=== PATIENT | female | born 1980 | race Caucasian/White ===

== ENCOUNTER 2016-07-07 15:27 | Emergency (ER) | payer OTHER ==
[~2016-07-07] VITALS: Ht 180.3 cm; Wt 127.0 kg
[2016-07-07 15:28] VITALS: BP 146/84
[2016-07-07] MEDS ORDERED: SPIR25TA2 PO (15:43)
[2016-07-07] MEDS ORDERED: CORE12.5 PO ×2 (15:43→15:54)
[2016-07-07] MEDS ORDERED: LISI-538 PO (15:43)
== END 2016-07-07 16:13 | disposition home or self-care (01) ==
LOC: M ED 15:58
DX: Z76.0 Encounter for issue of repeat prescription (principal); I10 Essential (primary) hypertension; E66.9 Obesity, unspecified; Z79.899 Other long term (current) drug therapy

== ENCOUNTER 2016-10-04 01:18 | Emergency (ER) | payer OTHER ==
[~2016-10-04 01:18] MED LIST: CORE12.5 PO; LISI-538 PO; SPIR25TA2 PO
[2016-10-04] MEDS ORDERED: NS 1,000 ML IV ONE (01:45)
[2016-10-04] MEDS ORDERED: MORPHINE 4 MG/ML 1ML SYRINGE IV ONE (02:00)
[2016-10-04 02:17] LABS: ADD MORPHOLOGY? YES; BASO % 0.9 % (0.0-1.0); EOS # 0.1 K/mm3 (0.0-0.50); EOS % 2.2 % (0.0-3.0); LARGE UNSTAINED CELL # 0.1 K/mm3 (0.0-0.4); LARGE UNSTAINED CELL % 0.9 % (0.0-4.0); LYMPH # 1.5 K/mm3 (1.5-4.5); LYMPH % 27.6 % (24.0-44.0); MEAN CORPUSCULAR HEMOGLOBIN 37.4 pg (27.0-33.0); MEAN CORPUSCULAR HGB CONC 33.4 g/dl (32.0-36.5); MEAN CORPUSCULAR VOLUME 111.8 fl (80.0-96.0); MONO # 0.2 K/mm3 (0.0-0.8); MONO % 3.2 % (0.0-5.0); NEUTROPHILS # 3.4 K/mm3 (1.8-7.7); NEUTROPHILS % 65.1 % (36.0-66.0); PLATELET COUNT, AUTOMATED 106 k/mm3 (150-450); RED CELL DISTRIBUTION WIDTH 13.8 % (11.5-14.5); WHITE BLOOD COUNT 5.3 K/mm3 (4.0-10.0)
[2016-10-04 02:32] LABS: ALBUMIN 3.3 GM/DL (3.2-5.2); ALBUMIN/GLOBULIN RATIO 0.85 (1.00-1.93); ALKALINE PHOSPHATASE 122 U/L (45-117); ALT/SGPT 32 U/L (12-78); AMYLASE 19 U/L (25-115); ANION GAP 10 MEQ/L (8-16); AST/SGOT 145 U/L (15-37); BILIRUBIN,DIRECT 0.3 MG/DL (0.0-0.2); BILIRUBIN,TOTAL 0.7 MG/DL (0.2-1.0); BLOOD UREA NITROGEN 5 MG/DL (7-18); CALCIUM LEVEL 8.8 MG/DL (8.5-10.1); CARBON DIOXIDE LEVEL 27 MEQ/L (21-32); CHLORIDE LEVEL 106 MEQ/L (98-107); CREATININE FOR GFR 0.63 MG/DL (0.55-1.02); GLOMERULAR FILTRATION RATE > 60.0 (>60); GLUCOSE, FASTING 105 MG/DL (70-105); POTASSIUM SERUM 3.3 MEQ/L (3.5-5.1); SODIUM LEVEL 143 MEQ/L (136-145); TOTAL PROTEIN 7.2 GM/DL (6.4-8.2)
[2016-10-04] MEDS ORDERED: ISOVUE-370 76% 100ML VIAL (Q9967) As Ordered ONE (02:35)
--- NOTE | 2016-10-04 03:30 | REPUSA ---
CLINICAL HISTORY: Abdominal pain. TECHNIQUE: Multiple axial, sagittal and coronal CT images were obtained through the abdomen and pelvi s after administration of intravenous contrast material. COMMENTS: Mildly enlarged precious hepatis lymph nodes with the largest measuring 1.3 cm. Mild enlarged portacaval lymph node measuring 1.4 cm. The liver is moderately enlarged with irregular contour but without mass or defect. There is no intra or extrahepatic biliary ductal dilatation. The spleen is mildly enlarged. The gallbladder is distend ed. The pancreas is of normal contour and attenuation characteristics. There is no evidence of adrena l mass. Both kidneys demonstrate prompt and equal nephrograms. The kidneys are normal in size, shape and conf iguration. There is no evidence of renal or ureteral mass. No renal or ureteral calculi are identifie d. There is no hydroureter or hydronephrosis. No evidence for appendicitis. There is hepatic flexure colonic wall thickening. No evidence for smal l or large bowel obstruction. There is small amount of perihepatic fluid. There is no evidence of intrinsic or extrinsic bladder mass. There is small amount of free pelvic fl uid. Images of the lung bases show no evidence of pleural or parenchymal mass. There are no pleural effusi ons. The bony structures are free of lytic or blastic lesions. Multilevel degenerative changes are seen in volving the thoracolumbar spine. Scattered calcifications are seen involving the aorta and major bran ches compatible with atherosclerosis. IMPRESSION: Parenchymal liver disease. Hepatomegaly. Splenomegaly. Portal hypertension. Mildly enlarged precious hepatis and portal caval lymph nodes. Mesenteric congestion. Mild ascites. Thickened, underdistended bladder. Underdistention, spasm versus mild cystitis. Please correlate with urinalysis if clinically needed. Thickened hepatic flexure of the colon. Underdistention, spasm versus mild colitis. No perforation or abscess formation. Thank you for your kind referral of this patient.
[2016-10-04] MEDS ORDERED: NORCO, ANEXSIA 5/325MG TABLET (HYDROcodone/ACETAMINOPHEN) PO ONE (03:45)
[2016-10-04 04:12] VITALS: BP 155/80
== END 2016-10-04 04:27 | disposition left against medical advice (07) ==
LOC: EDBD 01:18 → M ED 01:18
DX: R16.2 Hepatomegaly with splenomegaly, not elsewhere classified (principal); K76.6 Portal hypertension; I10 Essential (primary) hypertension; Z79.899 Other long term (current) drug therapy
CPT/HCPCS: 74177; 80048; 80076; 81001; 82150; 83690; 85025; 87086; 96374; 99284; Q9967

== ENCOUNTER 2016-10-14 20:03 | Emergency (ER) | payer OTHER ==
[~2016-10-14] VITALS: Ht 182.9 cm; Wt 139.5 kg
[2016-10-14] MEDS ORDERED: ONDANSETRON 4MG/2ML VIAL (J2405) IV ONE (20:45)
[2016-10-14] MEDS ORDERED: NS 1,000 ML IV ONE (20:45)
[2016-10-14] MEDS ORDERED: MORPHINE 4 MG/ML 1ML SYRINGE IV PRN (20:45)
[2016-10-14 21:29] LABS: ALBUMIN 3.8 GM/DL (3.2-5.2); ALBUMIN/GLOBULIN RATIO 0.84 (1.00-1.93); ALKALINE PHOSPHATASE 126 U/L (45-117); ALT/SGPT 39 U/L (12-78); ANION GAP 13 MEQ/L (8-16); AST/SGOT 151 U/L (15-37); BILIRUBIN,DIRECT 0.3 MG/DL (0.0-0.2); BILIRUBIN,TOTAL 0.9 MG/DL (0.2-1.0); BLOOD UREA NITROGEN 3 MG/DL (7-18); CALCIUM LEVEL 8.8 MG/DL (8.5-10.1); CARBON DIOXIDE LEVEL 25 MEQ/L (21-32); CHLORIDE LEVEL 105 MEQ/L (98-107); CREATININE FOR GFR 0.61 MG/DL (0.55-1.02); GLOMERULAR FILTRATION RATE > 60.0 (>60); GLUCOSE, FASTING 105 MG/DL (70-105); POTASSIUM SERUM 3.8 MEQ/L (3.5-5.1); SODIUM LEVEL 143 MEQ/L (136-145); TOTAL PROTEIN 8.3 GM/DL (6.4-8.2)
[2016-10-14] MEDS ORDERED: ISOVUE-370 76% 100ML VIAL (Q9967) As Ordered ONE (21:38)
[2016-10-14 21:51] LABS: ADD MANUAL DIFFER YES; MEAN CORPUSCULAR HEMOGLOBIN 37.1 pg (27.0-33.0); MEAN CORPUSCULAR VOLUME 112.3 fl (80.0-96.0); PLATELET COUNT, AUTOMATED 161 k/mm3 (150-450); RED CELL DISTRIBUTION WIDTH 13.5 % (11.5-14.5); WHITE BLOOD COUNT 8.6 K/mm3 (4.0-10.0)
[2016-10-14 22:10] LABS: INR 1.05
--- NOTE | 2016-10-14 22:20 | REPUSA ---
CT of the abdomen and pelvis without contrast Clinical statement: Pain. Technique: Multiple axial CT images were obtained from the base of the lungs to the floor of the pelv is utilizing 5 mm axial slices without administration of contrast. Coronal and sagittal reconstructio ns were also obtained. Comparison: 10/04/2016. Findings: Chest: The visualized lung bases are clear. Abdomen: The kidneys are normal in size bilaterally. There is no evidence of hydronephrosis or nephro lithiasis. The enlargement of the liver and spleen are grossly stable. Evidence of portal venous hype rtension is again noted and is stable. The liver, spleen, pancreas, gallbladder and adrenal glands ar e otherwise unremarkable. The aorta demonstrates normal caliber and contour. Enlarged portahepatic an d portocaval lymph node is stable. There is a trace perihepatic ascites.. Pelvis: The bowel is unremarkable, with no obstructive or inflammatory changes. The urinary bladder i s within normal limits. There is no pelvic lymphadenopathy or ascites. The other pelvic structures ap pear unremarkable. Bones: There are no suspicious osseous abnormalities seen. Impression: 1. Hepatosplenomegaly. Portal venous hypertension. Trace perihepatic ascites. 2. Mild portahepatic/portocaval adenopathy is grossly stable. 3. No obstructive or inflammatory bowel changes. 4. The other CT findings are stable.
[2016-10-14 22:35] LABS: BANDS 8 % (< 11); EOSINOPHILS 1 % (0-5)
[2016-10-14] MEDS ORDERED: ZOFR4TAB3 PO (23:00)
[2016-10-14] MEDS ORDERED: OXYCO5TA GT (23:00)
[2016-10-14] MEDS ORDERED: ONDANSETRON 4 MG ORAL DISINTEGRATING TAB (S0181) PO ONE (23:15)
[2016-10-14] MEDS ORDERED: oxyCODONE 5MG TAB PO ONE (23:15)
[2016-10-14 23:34] VITALS: BP 127/75
== END 2016-10-14 23:42 | disposition home or self-care (01) ==
LOC: M ED 20:03
DX: R16.2 Hepatomegaly with splenomegaly, not elsewhere classified (principal); K76.6 Portal hypertension; R18.8 Other ascites; I10 Essential (primary) hypertension; I50.9 Heart failure, unspecified; F17.200 Nicotine dependence, unspecified, uncomplicated; Z79.899 Other long term (current) drug therapy
CPT/HCPCS: 74177; 80048; 80076; 81025; 83690; 85025; 85610; 85730; 96374; 96375; 99284; J2405; Q9967

== ENCOUNTER → 2017-03-12 | Outpatient (REF) | payer OTHER | LOC: M SFHCLERA 14:52 | DX: R16.0 Hepatomegaly, not elsewhere classified (principal); N93.8 Other specified abnormal uterine and vaginal bleeding; E66.01 Morbid (severe) obesity due to excess calories ==

== ENCOUNTER 2017-07-05 08:35 | Day surgery (SDC) | payer OTHER ==
[2017-07-05] MEDS ORDERED: LIDOCAINE 2% INJ 100 MG/5 ML SDV (FOR ANES.) As Ordered (09:24)
[2017-07-05] MEDS ORDERED: PROPOFOL 200 MG/20 ML VIAL As Ordered ×4 (09:24→10:44)
[2017-07-05] MEDS: NS 1,000 ML IV (09:30)
== END 2017-07-05 11:26 | disposition home or self-care (01) ==
LOC: M OPP 08:35
DX: R93.3 Abnormal findings on diagnostic imaging of other parts of digestive tract (principal); K92.1 Melena; R19.4 Change in bowel habit; D12.2 Benign neoplasm of ascending colon; D12.7 Benign neoplasm of rectosigmoid junction; K64.8 Other hemorrhoids; I50.9 Heart failure, unspecified; I11.0 Hypertensive heart disease with heart failure; R16.1 Splenomegaly, not elsewhere classified; R06.02 Shortness of breath; R06.83 Snoring; F17.210 Nicotine dependence, cigarettes, uncomplicated; Z79.899 Other long term (current) drug therapy; Z80.3 Family history of malignant neoplasm of breast; Z80.8 Family history of malignant neoplasm of other organs or systems; Z80.0 Family history of malignant neoplasm of digestive organs; Z80.1 Family history of malignant neoplasm of trachea, bronchus and lung
CPT/HCPCS: 45385

== ENCOUNTER → 2017-07-19 | Outpatient (CLI) | payer OTHER | LOC: M WUC 15:51 | DX: M51.36 Other intervertebral disc degeneration, lumbar region (principal) | CPT/HCPCS: 72100 ==

== ENCOUNTER → 2017-11-04 | Outpatient (REF) | payer OTHER | LOC: M SFHCLERA 16:49 | DX: I10 Essential (primary) hypertension (principal) ==

== ENCOUNTER 2018-01-23 22:48 | Emergency (ER) | payer OTHER ==
[2018-01-24] MEDS: MORPHINE 4 MG/ML 1ML VIAL/SYRINGE (J2270) IV ×2 (01:47→07:42)
[2018-01-24] MEDS: ONDANSETRON 4MG/2ML VIAL (J2405) IV ×2 (01:48→09:01)
[2018-01-24] MEDS: NS 1,000 ML IV ×2 (01:48→02:45)
[2018-01-24] MEDS: fentaNYL 100 MCG/2 ML INJECTION (J3010) IV (02:45)
== END 2018-01-24 10:09 | disposition home or self-care (01) ==
LOC: M ED 22:48
DX: S82.401A Unspecified fracture of shaft of right fibula, initial encounter for closed fracture (principal); S82.52XA Displaced fracture of medial malleolus of left tibia, initial encounter for closed fracture; I10 Essential (primary) hypertension; F17.210 Nicotine dependence, cigarettes, uncomplicated; W18.39XA Other fall on same level, initial encounter; X50.0XXA Overexertion from strenuous movement or load, initial encounter; Y92.9 Unspecified place or not applicable
CPT/HCPCS: J2270

== ENCOUNTER 2018-01-28 13:43 | Day surgery (SDC) | payer OTHER ==
[~2018-01-28 13:43] MED LIST changes: +AcetaZOLAMIDE 500 MG ER CAP As Ordered; -CORE12.5 PO; -LISI-538 PO; -SPIR25TA2 PO
[2018-01-28] MEDS: LR 1,000 ML IV ×3 (14:00→21:15)
[2018-01-28] MEDS ORDERED: MIDAZOLAM INJ 2 MG/2 ML VIAL (J2250) As Ordered ×2 (17:38→19:14)
[2018-01-28] MEDS ORDERED: PROPOFOL 200 MG/20 ML VIAL As Ordered ×8 (17:39→19:27)
[2018-01-28] MEDS ORDERED: PHENYLephrine HCL 500 MCG/5 ML (100MCG/ML) SYRINGE (J2370) As Ordered (18:28)
[2018-01-28] MEDS: ceFAZolin 1GM INJ (J0690 PER 500MG) As Ordered (18:39)
[2018-01-28] MEDS ORDERED: KETAMINE HCL 200 MG/20 ML VIAL As Ordered (19:13)
[2018-01-28] MEDS ORDERED: ONDANSETRON 4MG/2ML VIAL (J2405) As Ordered ×2 (19:27)
[2018-01-28] MEDS: NORCO, ANEXSIA 5/325MG TABLET (HYDROcodone/ACETAMINOPHEN) PO (21:10)
[2018-01-28] MEDS ORDERED: fentaNYL 100 MCG/2 ML INJECTION (J3010) IV (21:15)
[2018-01-28] MEDS ORDERED: PERCOCET 5MG/325MG TAB PO (21:15)
[2018-01-28] MEDS ORDERED: ONDANSETRON 4MG/2ML VIAL (J2405) IV (21:15)
[2018-01-28] MEDS: MORPHINE 4 MG/ML 1ML VIAL/SYRINGE (J2270) IV (22:35)
[2018-01-29] MEDS: MORPHINE 4 MG/ML 1ML VIAL/SYRINGE (J2270) IV ×2 (00:13→02:13)
[2018-01-29] MEDS: ONDANSETRON 4MG/2ML VIAL (J2405) IV ×2 (02:20→09:07)
[2018-01-29] MEDS: PERCOCET 5MG/325MG TAB PO ×3 (03:04→14:31)
[2018-01-29] MEDS: LR 1,000 ML IV ×2 (05:00→13:15)
== END 2018-01-29 15:05 | disposition home or self-care (01) ==
LOC: M SDC 13:43 → M MS5PR 21:40
DX: S82.51XA Displaced fracture of medial malleolus of right tibia, initial encounter for closed fracture (principal); S82.831A Other fracture of upper and lower end of right fibula, initial encounter for closed fracture; S93.431A Sprain of tibiofibular ligament of right ankle, initial encounter; I11.0 Hypertensive heart disease with heart failure; I50.9 Heart failure, unspecified; R94.5 Abnormal results of liver function studies; K59.00 Constipation, unspecified; K62.5 Hemorrhage of anus and rectum; R16.1 Splenomegaly, not elsewhere classified; R09.81 Nasal congestion; G47.9 Sleep disorder, unspecified; R06.83 Snoring; Z79.899 Other long term (current) drug therapy; Z86.010 Personal history of colon polyps; Z72.0 Tobacco use; X58.XXXA Exposure to other specified factors, initial encounter; Y93.89 Activity, other specified; Y92.89 Other specified places as the place of occurrence of the external cause; Y99.8 Other external cause status
CPT/HCPCS: 27814

== ENCOUNTER 2018-04-02 03:51 | Inpatient (IN) | payer OTHER ==
[~2018-04-02] VITALS: Ht 182.9 cm; Wt 131.2 kg
[~2018-04-02 03:51] MED LIST changes: +ASPI325T PO; -AcetaZOLAMIDE 500 MG ER CAP As Ordered; +CARV12.5 PO; +CORE12.5 PO; +LISI-538 PO; +OXYCO5TA GT; +PERC5TAB12 PO; +SPIR-10 PO; +ZOFR4TAB14 PO; +ZOFR4TAB16 PO
[2018-04-02 04:33] LABS: BASO % 0.8 % (0.0-1.0); EOS % 0.8 % (0.0-3.0); HEMATOCRIT 37.4 % (36.0-47.0); HEMOGLOBIN 12.9 g/dl (12.0-15.5); LYMPH # 1.4 10^3/uL (1.5-4.5); LYMPH % 27.8 % (24.0-44.0); MEAN CORPUSCULAR HEMOGLOBIN 37.5 pg (27.0-33.0); MEAN CORPUSCULAR HGB CONC 34.5 g/dl (32.0-36.5); MEAN CORPUSCULAR VOLUME 108.7 fl (80.0-96.0); MONO # 0.5 10^3/uL (0.0-0.8); MONO % 9.7 % (0.0-5.0); NEUTROPHILS # 2.9 10^3/uL (1.8-7.7); NEUTROPHILS % 60.5 % (36.0-66.0); RED BLOOD COUNT 3.44 10^6/uL (4.00-5.40); WHITE BLOOD COUNT 4.9 10^3/uL (4.0-10.0)
[2018-04-02 04:38] LABS: BLOOD UREA NITROGEN 5 MG/DL (7-18); CALCIUM LEVEL 7.8 MG/DL (8.5-10.1); CARBON DIOXIDE LEVEL 28 MEQ/L (21-32); CHLORIDE LEVEL 97 MEQ/L (98-107); CREATININE FOR GFR 0.63 MG/DL (0.55-1.30); GLOMERULAR FILTRATION RATE > 60.0 (>58); GLUCOSE, FASTING 115 MG/DL (70-100); POTASSIUM SERUM 3.5 MEQ/L (3.5-5.1); SODIUM LEVEL 137 MEQ/L (136-145)
[2018-04-02 04:41] LABS: HCG, SERUM QUALITATIVE NEGATIVE (NEGATIVE)
[2018-04-02] MEDS ORDERED: MORPHINE 4 MG/ML 1ML VIAL/SYRINGE (J2270) IV ONE ×2 (04:45→06:00)
[2018-04-02 04:52] LABS: PLATELET COUNT, AUTOMATED 61 10^3/uL (150-450)
[2018-04-02 05:17] LABS: ALBUMIN 3.3 GM/DL (3.2-5.2); ALT/SGPT 69 U/L (12-78); BILIRUBIN,DIRECT 4.1 MG/DL (0.0-0.2); BILIRUBIN,TOTAL 6.4 MG/DL (0.2-1.0); LIPASE 387 U/L (73-393); TOTAL PROTEIN 7.2 GM/DL (6.4-8.2)
[2018-04-02] MEDS: GASTROGRAFIN SOLUTION 30ML PO SCH ×2 (05:40→06:00)
[2018-04-02] MEDS: NS 1,000 ML IV SCH ×3 (05:59→19:10)
[2018-04-02] MEDS ORDERED: ISOVUE-370 76% 100ML VIAL (Q9967) As Ordered ONE (07:31)
[2018-04-02] MEDS: MORPHINE 4 MG/ML 1ML VIAL/SYRINGE (J2270) IV PRN ×4 (07:54→17:26)
--- NOTE | 2018-04-02 08:21 | REP ---
CT of the abdomen and pelvis with IV and oral contrast: Comparison is 2016. The visualized lung hernandez are unremarkable. No pleural effusions. The hepatic parenchyma is hypodense compatible with hepato steatosis. No hepatic masses are identified. The liver appears enlarged. There is a small volume of ascites at the lateral margin of the liver. There are mesenteric varicosities anteriorly of uncertain significance. This may represent portal hypertension, however the portal vein does not appear dilated. There is focal inflammation at the inferior tip of the liver interposed between the liver, right kidney, duodenal loop and colonic hepatic flexure. This is nonspecific and could represent diverticulitis, pyelonephritis or duodenitis. There is no focal fluid collection to suggest abscess. The gallbladder, pancreas and spleen are unremarkable except that the spleen appears enlarged. The adrenals are unremarkable. The kidneys are unremarkable. There are no areas of a decreased left, decreased right renal cortical enhancement to suggest right pyelonephritis. The abdominal aorta is unremarkable. There is no bowel distension or obstruction. There are a few small diverticula in the hepatic flexure of the colon. Pelvis: The uterus and adnexa are unremarkable. There is no ascites. There is no adenopathy. The bladder is nondistended and cannot be further evaluated. Impression: Induration at the tip of the liver as described: Diverticulitis versus duodenitis. Pyelonephritis is considered less likely as the right kidney has an unremarkable appearance. No associated fluid collection to suggest abscess. Small volume of ascites lateral to the liver. Hepato splenomegaly. Hepato steatosis. Mesenteric varicosities anteriorly of uncertain significance, possibly portal hypertension, however the portal vein is not distended. No ascites. There are a few hepatic flexure a small diverticula. There are a few scattered diverticula in the sigmoid colon without diverticulitis. Electronically Signed by Nic Jack MD 04/02/2018 08:13 A
[2018-04-02 09:21] LABS: HEPATITIS B SURFACE ANTIGEN NEGATIVE (NEGATIVE)
[2018-04-02 09:48] LABS: HEPATITIS B CORE ANTIBODY IGM NEGATIVE (NEGATIVE); HEPATITIS C VIRUS ABY INDEX 0.4 INDEX (<0.8)
[2018-04-02 09:51] LABS: HEPATITIS A ANTIBODY IGM NEGATIVE (NEGATIVE)
--- NOTE | 2018-04-02 10:01 | REP ---
RIGHT UPPER QUADRANT ULTRASOUND: Real-time sonographic evaluation of the right upper quadrant performed and correlated with today's CT scan of the abdomen and pelvis. The study is limited due to patient body habitus and inability to suspend respiration. No gross gallstones are seen in the gallbladder. There is probably some mild sludge. There is no definite gallbladder wall thickening or pericholecystic fluid. The visualized portion of the common bile duct measures 7-8 mm essentially at the upper limits of normal. There is diffuse fatty infiltration of the liver. The pancreas could not be visualized. Right kidney demonstrates no hydronephrosis with normal size 12.5 cm in length. IMPRESSION: Extremely limited exam. Probable mild sludge in the gallbladder without definite gallstones or gallbladder wall thickening. No evidence of pericholecystic fluid. Common bile duct upper limits of normal at 7-8 mm. Diffuse fatty infiltration of the liver. Electronically Signed by Nic Seay MD 04/02/2018 10:45 A
[2018-04-02 16:58] LABS: HEMATOCRIT 35.5 % (36.0-47.0); HEMOGLOBIN 12.3 g/dl (12.0-15.5)
[2018-04-02] MEDS ORDERED: PROHANCE 279.3MG/ML 5ML VIAL (A9576) As Ordered ONE (20:14)
[2018-04-02] MEDS ORDERED: PROHANCE 279.3MG/ML 15ML VIAL (A9576) As Ordered ONE (20:14)
[2018-04-02] MEDS ORDERED: KETOROLAC 30 MG/ML VIAL (J1885) IV ONE (22:15)
--- NOTE | 2018-04-02 22:19 | REPVR ---
EXAM: MR Abdomen Without and With Contrast. Liver. EXAM DATE/TIME: 04/02/2018 8:26 PM CLINICAL HISTORY: 38 years old, female; Abnormal findings; Abnormal lab test; Elevated liver enzymes; Additional info: Abd pain elevated bili - liver protocol TECHNIQUE: MR Abdomen with and without intravenous contrast. Exam focused on the liver. CONTRAST: 20 ml of PROHANCE administered intravenously. COMPARISON: GALLBLADDER US 04/02/2018 9:01 AM FINDINGS: Liver: There is irregular enhancement of the enlarged liver which could be the result of hepatocellular disease or irregular fatty infiltration. Malignant infiltrative process not absolutely excluded. Gallbladder and bile ducts: There is hydrops of the gallbladder. There is small amount of ascites along the liver edge and along the margin of the gallbladder and duodenal C-loop. There is enlargement of the common bile duct measure approximately 1 CM. Mild prominence of the intrahepatic ducts also noted. This could be secondary to debris or a small nonopaque stone distal end of the duct. A small mass or mild stricture could give this appearance as well. No definite focal mass can be identified at this location. If there are continued symptoms an ERCP might be considered. This would be especially important if the common bile duct continues to increase in size. The common bile duct has increased in size when compared to the CT examination 2017. Pancreas: Normal pancreatic duct. Normal appearing pancreas. Spleen: There is moderate hepatosplenomegaly. Adrenals: Normal adrenal glands. Intraperitoneal space: There is stranding density and increased vessels in the anterior mesentery that has increased since 2017. This may be secondary to portal hypertension. Early metastasis to this area not absolutely excluded. Other findings: Normal appearing kidneys. IMPRESSION: 1. Since 2017 there has been an increase in the amount of ascites along the liver edge and along the gallbladder fossa and right paracolic space. 2. Also since 2017 there has been interval development of severe fatty infiltration of the liver and prominent hepatomegaly. 3. Since 2017 there has been increase in size the common bile duct now measuring 1 CM. Considerations would include nonopaque debris, nonopaque stone, small stricture or small mass distal end of the duct. ERCP may be necessary for further evaluation. 4. Severe irregular enhancement through the enlarged liver could be the result of hepatocellular disease, severe irregular fatty infiltration or neoplastic infiltration and new since 2017. 5. Prominent vessels and stranding density anterior mesentery new since 2017 may be due to portal hypertension. Early changes of metastasis can give this appearance as well. Electronically signed by: Sukhdev Mora On 04/02/2018 22:19:36 PM
[2018-04-02] MEDS ORDERED: SENN18TA PO (22:49)
[2018-04-03] MEDS ORDERED: PILL CRUSHER/CUTTER 1 EACH XX PRN (04:00)
[2018-04-03] MEDS: D5W/0.45% SODIUM CHLORIDE 1,000 ML IV SCH ×2 (04:38→22:03)
[2018-04-03] MEDS: cefTRIAXone SOD 1 GM in D5W MINI-BAG PLUS 50 ML IV SCH (04:45)
[2018-04-03] MEDS ORDERED: MORPHINE 4 MG/ML 1ML VIAL/SYRINGE (J2270) IV ONE (05:30)
[2018-04-03] MEDS: metroNIDAZOLE 500 MG in APPROPRIATE DILUENT 1 EA IV SCH ×3 (05:46→22:02)
[2018-04-03 07:07] LABS: ACETAMINOPHEN LEVEL < 2.0 UG/ML (10.0-30.0); CHOLESTEROL LEVEL 157 MG/DL (<200); HDL CHOLESTEROL 10 MG/DL (>40); LDL CHOLESTEROL 118 MG/DL (<100); NON-HDL-C 147 MG/DL; TRIGLYCERIDES LEVEL 146 MG/DL (<150)
[2018-04-03 08:14] LABS: INR 1.75; PROTHROMBIN TIME 20.7 SECONDS (12.1-14.4)
[2018-04-03 08:43] LABS: BASO # 0.1 10^3/uL (0.0-0.2); EOS % 0.8 % (0.0-3.0); HEMATOCRIT 31.8 % (36.0-47.0); LYMPH # 1.4 10^3/uL (1.5-4.5); MEAN CORPUSCULAR HEMOGLOBIN 38.3 pg (27.0-33.0); MEAN CORPUSCULAR HGB CONC 34.6 g/dl (32.0-36.5); MEAN CORPUSCULAR VOLUME 110.8 fl (80.0-96.0); MONO # 0.6 10^3/uL (0.0-0.8); MONO % 11.9 % (0.0-5.0); NEUTROPHILS # 2.8 10^3/uL (1.8-7.7); NEUTROPHILS % 56.9 % (36.0-66.0); RED BLOOD COUNT 2.87 10^6/uL (4.00-5.40); WHITE BLOOD COUNT 4.9 10^3/uL (4.0-10.0)
--- NOTE | 2018-04-03 09:16 | HPE ---
DATE OF ADMISSION: 04/03/2018 CHIEF COMPLAINT: The patient presented with abdominal cramping and abnormal vaginal bleeding. HISTORY OF PRESENT ILLNESS (HPI): The patient is a 38-year-old female. She has a significant past medical history of hypertension. She follows with Dr. Morales in the past for abdominal pain. She had a colonoscopy. She had multiple polyps. She has a history of pancreatitis cancer in the family not in herself personally. She states she has hepatomegaly and was believed to be a mild elevation of her liver function tests (LFTs) possible fatty infiltration. She presented to the emergency room (ER) today for abnormal uterine bleeding. The patient states over the last year she has had dysfunctional uterine bleeding. Over the last 3 weeks, she has continued to have vaginal bleeding with multiple large clots, some abdominal cramping for the past 3 weeks, multiple pads per day. Incidentally, she was noted to be jaundiced with scleral icterus. An obstructive jaundiced pattern with a total (T) bilirubin of 6 and a direct bilirubin of 4.1, which were normal back in 2017. Mild elevation of AST worsened now compared to 2017. GI, Dr. Morales was consulted in the emergency room. The patient had a CT right upper quadrant ultrasound and magnetic resonance cholangiopancreatography (MRCP). Her hemoglobin has remained stable while she is in the emergency room. PAST MEDICAL HISTORY: See HPI. PAST SURGICAL HISTORY: She had two (C) sections and a recent ankle surgery. HOME MEDICATIONS: - Coreg - Senna ALLERGIES: NO KNOWN DRUG ALLERGIES. SOCIAL HISTORY: She denies tobacco, alcohol or illicit drug use. FAMILY HISTORY: Pancreatic cancer. REVIEW OF SYSTEMS: A 12-point review of systems was performed, all of which were negative except those listed in the HPI. VITALS ON ADMISSION: Temperature 98.4, pulse 96, respirations 18, saturating at 98% on room air, blood pressure 134/69. PHYSICAL EXAMINATION: General: She is well nourished, in no apparent distress. Head is normocephalic, atraumatic. Eyes: Extraocular movements are intact. Pupils equal round and reactive to light. Neck is supple. No jugular venous pulse (JVP). Lungs are clear to auscultation. No crackles, wheezes, rales or rhonchi. Cardiovascular: Regular rate and rhythm. Normal S1, S2. No murmurs, gallops or rubs. The abdomen is soft. There is suprapubic tenderness on deep palpation. No rebound. No guarding. Hepatomegaly evident. Extremities: No pitting edema or calf tenderness. Skin is intact. She has scleral icterus in the eye exam as well as mild jaundice in the skin exam. Neurological: Alert and oriented times three. No focal deficits appreciated on exam. LABS AND IMAGING: Done in the ER, white count of 4, hemoglobin/hematocrit (H/H) of 12 and 37, platelet count of 61. Chemistry shows BUN and creatinine of 5 over 0.6, T bilirubin 6.4 normal when compared to 2017, direct bilirubin of 4.1 normal when compared to 2017, AST of 447 elevated compared to 2017, ALT 69, alkaline phosphatase 150, lipase within normal limits. Urinalysis (UA) shows only blood. Hepatitis panel is negative. Imaging MRCP: Since 2017, there has been increase in the amount of ascites along the liver edge and along the gallbladder fossa and right paracolic space.there is inability to look in fatty infiltration of the liver and prominent hepatomegaly 2017 there has been increase in the size of the common bile duct now measuring 1 cm. Severe irregular enhancement to the enlarged liver could be the result of hepatocellular disease, severe fatty infiltration and neoplastic infiltration new since 2017. Prominent vessels and stranding density mesentery new since 2017 may be due to portal hypertension. Early changes of mets can give this appearance as well. Ultrasound of the gallbladder shows extremely limiting exam, probably mild sludge in the gallbladder without definitive gallstones or gallbladder wall thickening. No evidence of pericholecystic fluid. Common bile duct (CBD) 7-8 mm. Diffuse fatty infiltration of the liver. CT of the abdomen and pelvis: Induration of the tip of the liver is described. Diverticulitis verus duodenitis. Pyelonephritis is considered less likely as the right kidney has an unremarkable appearance. No associated fluid collection to suggest abscess. Small volume of ascites lateral to the liver. Mesenteric varicosities anteriorly of uncertain significance, possibly portal hypertension, however the portal vein is not distended. ASSESSMENT AND PLAN: Obstructive jaundice, hepatitis versus less likely infiltrative neoplastic process. Patient to have endoscopic retrograde cholangiopancreatography (ERCP) in the a.m., to be seen by cnc technician, Dr. Morales, and will keep nothing by mouth for now. Will place him on ceftriaxone and Flagyl as she will likely need an ERCP to assess for any obstruction. Antimitochondrial antibodies (AMA) to rule out primary biliary cirrhosis, anti-smooth muscle to rule out autoimmune hepatitis, Tylenol levels. Hepatitis panel is negative. The patient has not been exposed to any toxins. She only takes Coreg and Senna. She denies history of alcohol abuse. A CT abdomen and pelvic with contrast shows no signs of primary malignancy to suggest an infiltrative neoplastic process. The patient needs ERCP to assess for obstruction, strictures. Possibly may need a liver biopsy as well. GI to see in the a.m. For dysfunctional uterine bleeding, do serial hemoglobins, ultrasound of the pelvis. She will likely need a [employer] consult. She had outpatient appointment, which she has not yet made, to assess for any fibroids or other intrapelvic pathology. Hypertension: Continue Coreg. Supportive deep venous thrombosis (DVT) prophylaxis: Sequential compressive device (SCD). Gastrointestinal (GI) prophylaxis is not indicated. Diet: Nothing by mouth for now in lieu of possibly needing ERCP. MTDD
[2018-04-03] MEDS: CARVedilol 12.5 MG TAB PO SCH ×3 (09:40→22:04)
[2018-04-03 10:02] LABS: PLATELET COUNT, AUTOMATED 63 10^3/uL (150-450)
[2018-04-03 10:33] LABS: ALBUMIN 2.8 GM/DL (3.2-5.2); ALT/SGPT 55 U/L (12-78); BILIRUBIN,TOTAL 5.3 MG/DL (0.2-1.0); BLOOD UREA NITROGEN 7 MG/DL (7-18); CALCIUM LEVEL 7.7 MG/DL (8.5-10.1); CARBON DIOXIDE LEVEL 27 MEQ/L (21-32); CHLORIDE LEVEL 100 MEQ/L (98-107); CREATININE FOR GFR 0.49 MG/DL (0.55-1.30); GLOMERULAR FILTRATION RATE > 60.0 (>58); GLUCOSE, FASTING 84 MG/DL (70-100); MAGNESIUM LEVEL 1.5 MG/DL (1.8-2.4); POTASSIUM SERUM 3.2 MEQ/L (3.5-5.1); SODIUM LEVEL 136 MEQ/L (136-145); TOTAL PROTEIN 6.4 GM/DL (6.4-8.2)
[2018-04-03 10:45] LABS: LDH LACTATE DEHYDROGENASE 366 U/L (84-246)
--- NOTE | 2018-04-03 10:54 | REP ---
Pelvic ultrasound including transabdominal, endovaginal and Doppler ultrasound assessment for irregular bleeding for 3 weeks: The uterus is anteverted and slightly enlarged measuring 9.7 x 4.9 x 5.5 cm. The myometrium is mildly heterogeneous. Because of patient pain the uterine fundus is suboptimally visualized. The endometrium is heterogeneous and mildly thickened measuring up to 17.5 mm. Nabothian cysts are noted in the cervix. The right ovary measures 2.7 x 2.8 x 2.3 cm. There is no dominant right ovarian mass or cyst. The left ovary measures 3.6 x 2.2 x 3.2 cm. There is no dominant left ovarian mass or cyst. There is vascular flow in both ovaries. The Doppler resistive index of the parenchymal arteries of the right ovary is 0.37 and left ovary 0.41. There is a mild volume of free fluid in the pelvis. Impression: Mildly thickened heterogeneous endometrium. The uterine fundus is suboptimally visualized because of patient pain. Electronically Signed by Nic Jack MD 04/03/2018 10:45 A
[2018-04-03 11:12] LABS: HEMATOCRIT 34.7 % (36.0-47.0); HEMOGLOBIN 11.8 g/dl (12.0-15.5)
[2018-04-03 11:34] LABS: ALBUMIN 3.1 GM/DL (3.2-5.2); ALT/SGPT 60 U/L (12-78); BILIRUBIN,TOTAL 5.8 MG/DL (0.2-1.0); BLOOD UREA NITROGEN 6 MG/DL (7-18); CALCIUM LEVEL 7.5 MG/DL (8.5-10.1); CARBON DIOXIDE LEVEL 26 MEQ/L (21-32); CHLORIDE LEVEL 99 MEQ/L (98-107); CREATININE FOR GFR 0.63 MG/DL (0.55-1.30); GLOMERULAR FILTRATION RATE > 60.0 (>58); GLUCOSE, FASTING 113 MG/DL (70-100); POTASSIUM SERUM 3.2 MEQ/L (3.5-5.1); SODIUM LEVEL 137 MEQ/L (136-145); TOTAL PROTEIN 7.2 GM/DL (6.4-8.2)
[2018-04-03] MEDS: PERCOCET 5MG/325MG TAB PO PRN ×2 (11:55→22:04)
[2018-04-03 16:15] VITALS: BP 167/87
[2018-04-03] MEDS: MORPHINE 4 MG/ML 1ML VIAL/SYRINGE (J2270) IV PRN (16:29)
[2018-04-03] MEDS ORDERED: PERCOCET 5MG/325MG TAB PO PRN (17:45)
[2018-04-03] MEDS ORDERED: MAG SULF 1GM/100ML (MAG RUN) 1 GM in APPROPRIATE DILUENT 1 EA IV ONE (17:45)
[2018-04-03] MEDS ORDERED: POTASSIUM CHLORIDE 10 MEQ SR TABLET PO ONE (17:45)
--- NOTE | 2018-04-03 18:00 | IPN ---
DATE: 04/03/2018 Patient seen and examined. Reported suprapubic crampiness intermittently. Denies any chest pain, pressure or discomfort. Denies any fevers or chills. VITAL SIGNS: Temperature 97.6, pulse 84, respirations 18, blood pressure 113/53, pulse oximetry 95% on room air. LABORATORY DATA: WBC 4.9, hemoglobin and hematocrit 11.8/34.7, platelets 63. Chemistry: Sodium 137, potassium 3.2, chloride 99, bicarbonate 26, BUN 6, creatinine 0.6, bilirubin 5.8. PHYSICAL EXAMINATION: GENERAL: Patient alert, comfortable, no acute distress. HEENT: Normocephalic, atraumatic. PULMONARY: Bilateral clear. CARDIAC: Regular, S1, S2. ABDOMEN: Soft, suprapubic tenderness to deep palpation. No rebound, no guarding. Positive bowel sounds. EXTREMITIES: No clubbing, cyanosis, or edema. ASSESSMENT AND PLAN: This is a 38-year-old female patient with family history of pancreatic cancer, history of hypertension, presented with progressively worsening crampy abdominal pain and vaginal bleeding, also found to be jaundiced with hyperbilirubinemia. 1. Vaginal bleeding, unknown etiology. Consulted obstetrics/gynecology ([facility]). Pelvic ultrasound. INR, PT/PTT, fibrinogen. Monitor hemoglobin and hematocrit, transfuse as needed. Vitamin K has been given. Pain medication is prescribed. Further recommendation as per obstetrics/gynecology ([facility]). 2. Jaundice with hyperbilirubinemia status post CT abdomen, right upper quadrant ultrasound, as well as MRCP. No evidence of obstruction is found at this time. Further workup has been ordered including antimitochondrial antibodies, anti-smooth muscle antibodies to rule out autoimmune hepatitis. Gastroenterology consulted. Tylenol level and hepatitis panel negative. Continue to follow liver function. Monitor hemoglobin and hematocrit. Vitamin K has been prescribed. Antibiotics, on Cipro and Flagyl, as per gastroenterology (GI). 3. Thrombocytopenia, likely secondary to cirrhosis. Continue to monitor. Transfuse as needed. 4. 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 Vitamin K has been prescribed. Will continue to monitor. 5. Hypertension. Continue Coreg. 6. Deep venous thrombosis (DVT) prophylaxis. Given vaginal bleed, thromboembolism deterrents (TEDs) and sequentials only. DISPOSITION: Pending gastroenterology (GI) and obstetrics/gynecology ([facility]) input. Likely going for EGD tomorrow.
[2018-04-03 18:05] LABS: HEMATOCRIT 31.9 % (36.0-47.0); HEMOGLOBIN 11.1 g/dl (12.0-15.5)
[2018-04-03] MEDS: PHYTONADIONE 5 MG TAB PO SCH (18:09)
--- NOTE | 2018-04-03 18:13 | CR.PDOC ---
General Date of Consultation: Apr 03, 2018 Referring Provider: THUAN JHAVERI MD Attending Physician: GOMEZ REYES MD Consultation Primary physician/ hospitalist: Dr. Jhaveri Reason for consult: Abnormal liver panel. HPI: 38-year-old female patient with HTN, cardiomyopathy ( on Coreg, fol lowing with Dr. Fish ), Obesity BMI 41--> 39), prior know hepatosplenomegaly, DUB ( following with AS400 ANALYST in past), presented to the emergency room (ER) today for excessive vaginal bleeding for around 3 weeks, with multiple large clots, lower abdominal cramping. Patient was noted with clinical jaundice in ER and did work up including liver panel, CT abdomen and then MRI liver protocol. GI was consulted for further evaluation. Patient currently reports still having vaginal bleeding, predominantly lower abdominal pain, with some discomfort around the umbilical area. Patient on further questioning reports her son was sick with some viral flu like symptoms and she was also having nausea with decreased/loss of appetite at home for the last 2 weeks. Patient denies any fever, recent travel, or diarrhea or generalized itching. Patient deneis heavy alcohol use but previous h/o heavy alcohol use from 20- 23 years age, but denies any IVDA. Patients is active smoker - but cutting down gradually. Pertinent negative GI symptoms: Patient denies vomiting, diarrhea, early satiety or unintentional weight loss. No history of hematemesis, melena or hematochezia. Patient reports regular bowel movements. OFF note: patient had right ankle fracture in January 2018 - had surgery and had been on Ankle cast since. Review of Systems: GI: as stated above CVS: No chest pain, No palpitations, mild leg swelling. RS: is on nasal cannula for hypoxemia, but not complaining of shortness of breath, No Wheezing, no cough WAITER/WAITRESS FORMAL: No dizziness, No motor weakness, No sensory problems Hematology: No bruising, No gum bleeding, Musculoskeletal: No joint pain, ambulating well. Skin: No rash : No hematuria, No burning sensation of the urine ENT: No ear discharge/ pain, No dysphagia. Eyes: No photophobia. Home medications: reviewed. Antithrombotic agents - None. Medical h/o: As above. Surgical h/o: C-sections 2001, 2008. Social h/o: Alcohol- prior heavy alcohol use but now only socially, tobacco- act zafar use, IVDA/ drugs- Denies. . Family h/o of GI cancers - Mother had intrabaodminal cancer -- suspected pancreatic. Prior Endoscopies: Colonoscopy - 07/05/2017 -- done for rectal bleeding -- good prep, completed till TI, noted few polyps -- all removed. Pathology - atleast 3 tubular adenomas ( also size >1 cm). Recommended repeat in 3 years. Prior GI evaluation: Followed in GI clinic [facility], was recommended liver work up and further liver imaging. Missed follow up, labs not available.( patient reports doing them at Cardiology clinic). Exam: Vitals: reviewed General: Alert and oriented x 3, not in distress HEENT: No pallor, Has scleral icterus. Normal oropharynx, No cervical lymph node s. Chest: symmetric with bilateral clear air entry, CVS: S1, S2 heard, normal, no murmurs . Abdomen: Obese, non -distended, no surgical scars, soft, non-tender, palpable enlarged liver mass, normal bowel sounds heard. Rectal exam: Patient refused Extremities: Mild pedal edema, right leg and ankle in cast, pulses palpable. WAITER/WAITRESS FORMAL: no focal motor or sensory deficits. Moves all extremities Skin: no rash. Labs: reviewed. Active viral hepatitis work up - negative. Autoimmune work up sent ( pending res ults). Imaging tests: reviewed the results of MRI liver protocol and CT scan with radiologist and compared with prior imaging. Noted features of portal hypertension, Liver parenchymal changes suggestive of cirrhotic nodule. Less likely metastatic lesions. no biliary obstructing stones. As per the report there is concern for papillary lesion. Impression: -- Abnormal liver panel with hepatosplenomegaly with small ascites and elevated bilirubin, low platelets, low albumin and elevated INR -- Likely liver cirrhosis -- ( possible etiology IRIZARRY vs Prior alcohol use vs Congestive hepatopathy ( know h/o cardiomyopathy in past). Needs further evaluation to confirm portal hyp ertension. -- Elevated bilirubin and AST levels -- DDx-- could be from chronic progressive cirrhosis vs r/o Acute viral hepatitis vs infiltrative liver disease vs autoimmune hepatitis. -- Dilated CBD in MRI but no CBD stones and concern for Ampullary/papillary lesion -- needs further evaluation. -- Excessive vaginal bleeding with mild anemia. Recommendations: - Patient educated about the test results, possible differential diagnoses and All questions answered. - Monitor IV fluid status closely. Avoid Excessive IV fluids. - Will obtain autoimmune work up, Rare viral hepatitis work up, hemolytic work up and septic work up.. - Monitor Liver panel - Avoid hepatotoxic medications. - Management of Dysfunctional uterine bleeding as per primary team and AS400 ANALYST. - Will schedule for EGD tomorrow to rule out esophageal varices and also to assess the ampulla. Clear liquid diet for today and then NPO after midnight. - The procedure, indications, risks (bleeding, perforation, infection, hypotension, respiratory depression, allergy, need for endotracheal intubation, surgery, colostomy, cardiac arrest, even ), benefits, limitations (e.g., missing a lesion), and all other alternatives (including no intervention) were explained to the patient who understood and agreed for the procedure. - When BP is stable to start low dose diuretics ( prefer Lasix 20mg and Aldacton e 50 mg). - In view of prior ankle fracture and chronic right leg immobilization, please consider DVT prophylaxis after reviewing the risks and benefits (as per primary team.). Plan of care discussed with patient and primary team. Patient verbalized understanding and agreed with the plan. Laboratory Data Labs 24H Laboratory Tests 2 04/03/18 05:57: Immature Granulocyte % (Auto) 0.4, White Blood Count 4.9, Red Blood Count 2.87L, Hemoglobin 11.0L, Hematocrit 31.8L, Mean Corpuscular Volume 110.8H, Mean Corpuscular Hemoglobin 38.3H, Mean Corpuscular Hemoglobin Concent 34.6, Red Cell Distribution Width 14.6H, Platelet Count 63L, Neutrophils (%) (Auto) 56.9, Lymphocytes (%) (Auto) 29.0, Monocytes (%) (Auto) 11.9H, Eosinophils (%) (Auto) 0.8, Basophils (%) (Auto) 1.0, Neutrophils # (Auto) 2.8, Lymphocytes # (Auto) 1.4L, Monocytes # (Auto) 0.6, Eosinophils # (Auto) 0.0, Basophils # (Auto) 0.1, Nucleated Red Blood Cells % (auto) 0.0, Differential Slide Review Report, Immature Platelet Fraction 6.1, Peripheral Blood Smear Path Consult PERIPHERAL SMEAR, Anion Gap 9, Glomerular Filtration Rate > 60.0, Blood Urea Nitrogen 7, Creatinine 0.49L, Sodium Level 136, Potassium Level 3.2L, Chloride Level 100, Carbon Dioxide Level 27, Calcium Level 7.7L, Aspartate Amino Transf (AST/SGOT) 356H, Alanine Aminotransferase (ALT/SGPT) 55, Lactate Dehydrogenase 366H, Alkaline Phosphatase 106, Total Bilirubin 5.3H, Triglycerides Level 146, LDL Cholesterol 118H, Total Protein 6.4, Albumin 2.8L, Magnesium Level 1.5L, Albumin/Globulin Ratio 0.78L, Total Cholesterol 157, Non-HDL Cholesterol (LDL + VLDL) 147, Total HDL Cholesterol 10L, Cholesterol/HDL Ratio 15.700H, Acetaminophen Level < 2.0L 04/03/18 07:47: Prothrombin Time 20.7H, Prothromb Time International Ratio 1.75, Activated Partial Thromboplast Time 43.0H, Fibrinogen 184L 04/03/18 10:55: Anion Gap 12, Glomerular Filtration Rate > 60.0, Blood Urea Nitrogen 6L, Creatinine 0.63, Sodium Level 137, Potassium Level 3.2L, Chloride Level 99, Carbon Dioxide Level 26, Calcium Level 7.5L, Aspartate Amino Transf (AST/SGOT) 389H, Alanine Aminotransferase (ALT/SGPT) 60, Alkaline Phosphatase 126H, Total Bilirubin 5.8H, Total Protein 7.2, Albumin 3.1L, Albumin/Globulin Ratio 0.76L CBC/BMP Laboratory Tests 04/03/18 05:57 Red Blood Count 2.87 L, Mean Corpuscular Volume 110.8 H, Mean Corpuscular Hemoglobin 38.3 H, Mean Corpuscular Hemoglobin Concent 34.6, Red Cell Distribution Width 14.6 H, Neutrophils (%) (Auto) 56.9, Lymphocytes (%) (Auto) 29.0, Monocytes (%) (Auto) 11.9 H, Eosinophils (%) (Auto) 0.8, Basophils (%) (Auto) 1.0, Neutrophils # (Auto) 2.8, Lymphocytes # (Auto) 1.4 L, Monocytes # (Auto) 0.6, Eosinophils # (Auto) 0.0, Basophils # (Auto) 0.1, Calcium Level 7.7 L, Aspartate Amino Transf (AST/SGOT) 356 H, Alanine Aminotransferase (ALT/SGPT) 55, Lactate Dehydrogenase 366 H, Alkaline Phosphatase 106, Total Bilirubin 5.3 H, Triglycerides Level 146, LDL Cholesterol 118 H, Total Protein 6.4, Albumin 2.8 L 04/03/18 10:55 Calcium Level 7.5 L, Aspartate Amino Transf (AST/SGOT) 389 H, Alanine Amino transferase (ALT/SGPT) 60, Alkaline Phosphatase 126 H, Total Bilirubin 5.8 H, Total Protein 7.2, Albumin 3.1 L Allergies Coded Allergies: No Known Allergies (Verified , 01/27/18) Home Medications Scheduled Carvedilol (Carvedilol) 12.5 Mg Tab, 18.75 MG PO BID, (Reported) Scheduled PRN Senna (Senna-Lax) 8.6 Mg Tab, 1 TAB PO DAILY PRN for CONSTIPATION, (Reported) GOMEZ REYES MD Apr 03, 2018 18:13
[2018-04-03 22:00] VITALS: BP 123/63
[2018-04-04 00:08] LABS: ANTI-MITOCHONDRIAL ANTIBODY 54.8 Units (0.0-20.0); ANTI-SMOOTH MUSCLE ANTIBODY 11 Units (0-19); ANTINUCLEAR ANTIBODIES DIRECT Negative (Negative)
[2018-04-04 00:19] LABS: HEMATOCRIT 31.7 % (36.0-47.0); HEMOGLOBIN 10.9 g/dl (12.0-15.5)
[2018-04-04] MEDS: MORPHINE 4 MG/ML 1ML VIAL/SYRINGE (J2270) IV PRN ×4 (01:16→22:43)
[2018-04-04] MEDS: cefTRIAXone SOD 1 GM in D5W MINI-BAG PLUS 50 ML IV SCH (04:18)
[2018-04-04 05:42] LABS: HEMOGLOBIN 11.2 g/dl (12.0-15.5); MEAN CORPUSCULAR HEMOGLOBIN 38.8 pg (27.0-33.0); MEAN CORPUSCULAR VOLUME 110.7 fl (80.0-96.0); RED BLOOD COUNT 2.89 10^6/uL (4.00-5.40); WHITE BLOOD COUNT 4.8 10^3/uL (4.0-10.0)
[2018-04-04] MEDS: metroNIDAZOLE 500 MG in APPROPRIATE DILUENT 1 EA IV SCH (05:42)
[2018-04-04 05:43] LABS: PLATELET COUNT, AUTOMATED 74 10^3/uL (150-450)
[2018-04-04 05:53] LABS: INR 1.63; PROTHROMBIN TIME 19.6 SECONDS (12.1-14.4)
[2018-04-04 05:59] LABS: PERCENT SATURATION 53.2 % (13.2-45.0)
[2018-04-04 06:00] VITALS: BP 129/69
[2018-04-04 06:00] LABS: ALBUMIN 2.6 GM/DL (3.2-5.2); ALT/SGPT 51 U/L (12-78); BILIRUBIN,TOTAL 5.2 MG/DL (0.2-1.0); BLOOD UREA NITROGEN 5 MG/DL (7-18); CALCIUM LEVEL 7.2 MG/DL (8.5-10.1); CARBON DIOXIDE LEVEL 28 MEQ/L (21-32); CHLORIDE LEVEL 100 MEQ/L (98-107); CREATININE FOR GFR 0.44 MG/DL (0.55-1.30); GLOMERULAR FILTRATION RATE > 60.0 (>58); GLUCOSE, FASTING 112 MG/DL (70-100); MAGNESIUM LEVEL 1.6 MG/DL (1.8-2.4); POTASSIUM SERUM 3.1 MEQ/L (3.5-5.1); SODIUM LEVEL 137 MEQ/L (136-145); TOTAL PROTEIN 6.6 GM/DL (6.4-8.2)
[2018-04-04] MEDS: MAG SULF 1GM/100ML (MAG RUN) 1 GM in APPROPRIATE DILUENT 1 EA IV SCH ×2 (07:53→09:00)
[2018-04-04] MEDS: PHYTONADIONE 5 MG TAB PO SCH (07:53)
[2018-04-04] MEDS: CARVedilol 12.5 MG TAB PO SCH ×2 (07:54→20:23)
[2018-04-04] MEDS ORDERED: POTASSIUM CHLORIDE 10 MEQ SR TABLET PO ONE (08:00)
--- NOTE | 2018-04-04 08:15 | NUR ---
[facility] Pelvic US reviewed. No significant findings. Given that patient is hemodynamically stable with other comorbidities currently being managed, I recommend follow up with [facility]ED [facility] as outpatient. Thank you Dr. Weldon
[2018-04-04 10:53] LABS: FOLATE 2.8 NG/ML (>5.4)
[2018-04-04] MEDS ORDERED: PROPOFOL 200 MG/20 ML VIAL As Ordered ONE ×3 (14:26→15:01)
[2018-04-04] MEDS ORDERED: LIDOCAINE 2% INJ 100 MG/5 ML SDV (FOR ANES.) As Ordered ONE (14:26)
--- NOTE | 2018-04-04 15:28 | ROOR ---
Patient Name: Shira Colon Procedure Date: 04/04/2018 2:39 PM Date of : 1980 Age: 38 Room: [facility] Gender: Female Note Status: Finalized Procedure: Upper GI endoscopy Indications: Cirrhosis rule out esophageal varices, Portal hypertension rule out esophageal varices Providers: Omar Morales MD Referring MD: 2. Inpatient 2. Inpatient, Nic MILAN MD Requesting Provider: Medicines: Monitored Anesthesia Care Complications: No immediate complications. Procedure: Pre-Anesthesia Assessment: - Prior to the procedure, a History and Physical was performed, and patient medications and allergies were reviewed. The patient is competent. The risks and benefits of the procedure and the sedation options and risks were discussed with the patient. All questions were answered and informed consent was obtained. Patient identification and proposed procedure were verified by the physician, the nurse and the anesthesiologist in the procedure room. Mental Status Examination: alert and oriented. Airway Examination: normal oropharyngeal airway and neck mobility. Respiratory Examination: clear to auscultation. CV Examination: normal. Prophylactic Antibiotics: The patient does not require prophylactic antibiotics. Prior Anticoagulants: The patient has taken no previous anticoagulant or antiplatelet agents. ASA Grade Assessment: III - A patient with severe systemic disease. After reviewing the risks and benefits, the patient was deemed in satisfactory condition to undergo the procedure. The anesthesia plan was to use monitored anesthesia care (MAC). Immediately prior to administration of medications, the patient was re-assessed for adequacy to receive sedatives. The heart rate, respiratory rate, oxygen saturations, blood pressure, adequacy of pulmonary ventilation, and response to care were monitored throughout the procedure. The physical status of the patient was re-assessed after the procedure. The Endoscope was introduced through the mouth, and advanced to the second part of duodenum. The upper GI endoscopy was accomplished without difficulty. The patient tolerated the procedure well. Findings: One column of non-bleeding grade II, small (< 5 mm) varices were found in the lower third of the esophagus,. No stigmata of recent bleeding were evident and no red stacie signs were present. Moderate, diffuse portal hypertensive gastropathy was found in the gastric fundus, in the gastric body and in the gastric antrum. Patchy moderate inflammation characterized by erosions was found in the gastric antrum. Biopsies were taken with a cold forceps for Helicobacter pylori testing. Verification of patient identification for the specimen was done by the physician and nurse using the patient's name, date and medical record number. Estimated blood loss was minimal. Diffuse moderate inflammation characterized by congestion (edema), erythema and granularity was found in the duodenal bulb and in the first portion of the duodenum. Biopsies were taken with a cold forceps for histology. There is no endoscopic evidence of mucosal abnormalities or mass in the second portion of the duodenum, in the major papilla, in the area of the minor papilla and in the third portion of the duodenum. Two biopsies were obtained in the second portion of the duodenum with cold forceps for histology. Impression: - Non-bleeding grade II and small (< 5 mm) esophageal varices. - Portal hypertensive gastropathy. - Gastritis. Biopsied. - Duodenitis. Biopsied. - There is no endoscopic evidence of mucosal abnormalities or mass in the second portion of the duodenum, in the major papilla, and in the area of the minor papilla. Two biopsies were obtained in the second portion of the duodenum. Recommendation: - Patient has a contact number available for emergencies. The signs and symptoms of potential delayed complications were discussed with the patient. Return to normal activities tomorrow. Written discharge instructions were provided to the patient. - Low sodium diet. - Continue present medications. - Await pathology results. - No aspirin, ibuprofen, naproxen, or other non-steroidal anti-inflammatory drugs. - Use Zantac (ranitidine) 150 mg PO Twice daily - to be taken wing coverer on empty stomach - 1/2 hour before breakfast and at bedtime. for 8 weeks. - Depending on clinical course will start on Non-selective beta dia for Variceal bleeding prophylaxis as out-patient. - Repeat upper endoscopy in 1 year for surveillance. - Return to GI clinic 1 - 2 weeks. Please call GI clinic @ [phone] for apppointment date and time. - Return to primary care physician. Omar Morales MD Omar Morales MD 04/04/2018 3:28:05 PM This report has been signed electronically. Number of Addenda: 0 Note Initiated On: 04/04/2018 2:39 PM Estimated Blood Loss: Estimated blood loss was minimal.
[2018-04-04 15:45] VITALS: BP 123/59
[2018-04-04 16:15] VITALS: BP 141/75
[2018-04-04] MEDS: ONDANSETRON 4MG/2ML VIAL (J2405) IV PRN (16:33)
[2018-04-04] MEDS: SPIRONOLACTONE 50 MG TAB PO SCH (18:13)
[2018-04-04 18:15] VITALS: BP 137/73
--- NOTE | 2018-04-04 19:14 | IPNPDOC ---
Text Note Date of Service The patient was seen on 04/04/18. NOTE Patient seen and examined. Reported suprapubic crampiness intermittently. Denies any chest pain, pressure or discomfort. Denies any fevers or chills. vaginal bleedin stopped PHYSICAL EXAMINATION: GENERAL: Patient alert, comfortable, no acute distress. HEENT: Normocephalic, atraumatic. PULMONARY: Bilateral clear. CARDIAC: Regular, S1, S2. ABDOMEN: Soft, suprapubic tenderness to deep palpation. No rebound, no guarding. Positive bowel sounds. EXTREMITIES: No clubbing, cyanosis, or edema. ASSESSMENT AND PLAN: This is a 38-year-old female patient with family history of pancreatic cancer, history of hypertension, presented with progressively worsening crampy abdominal pain and vaginal bleeding, also found to be jaundiced with hyperbilirubinemia. 1. Vaginal bleeding, unknown etiology. Consulted obstetrics/gynecology (ASSOCIATE TECHNICIAN). Pelvic ultrasound. INR, PT/PTT, fibrinogen. Monitor hemoglobin and hematocrit, transfuse as needed. Vitamin K has been given. Pain medication is prescribed. Further recommendation as per obstetrics/gynecology (ASSOCIATE TECHNICIAN). 2. Jaundice with hyperbilirubinemia status post CT abdomen, right upper quadrant ultrasound, as well as MRCP. No evidence of obstruction is found at this time. Further workup has been ordered including antimitochondrial antibodies positive, anti-smooth muscle antibodies to rule out autoimmune hepatitis. Gastroenterology consulted. Tylenol level and hepatitis panel negative. Continue to follow li annemarie function. Monitor hemoglobin and hematocrit. Vitamin K has been prescribed. likely 2/2 autoimmune hepatitis/ primary billiary cholangitis and IRIZARRY 3. Thrombocytopenia, likely secondary to cirrhosis. Continue to monitor. Transfuse as needed. 4. 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 Vitamin K has been prescribed. Will continue to monitor. 5. 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 s/p EGD by GI, no evidence of cancer. banding of esophageal varices beta dia, lasix, spirolactone. Pepcid, gi f/u outpatient 6 Hypertension. Continue Coreg. 7 Deep venous thrombosis (DVT) prophylaxis. Given vaginal bleed, thromboembolism deterrents (TEDs) and sequentials only. DISPOSITION: dc in 24 hr VS,[place], I+O VS, Fishbone, I+O Laboratory Tests 04/03/18 23:44 04/04/18 05:25 Red Blood Count 2.89 L, Mean Corpuscular Volume 110.7 H, Mean Corpuscular Hemoglobin 38.8 H, Mean Corpuscular Hemoglobin Concent 35.0, Red Cell Distribution Width 15.0 H, Calcium Level 7.2 L, Aspartate Amino Transf (AST/SGOT) 310 H, Alanine Aminotransferase (ALT/SGPT) 51, Alkaline Phosphatase 115, Total Bilirubin 5.2 H, Total Protein 6.6, Albumin 2.6 L 04/04/18 11:48 Vital Signs Date Time Temp Pulse Resp B/P (MAP) Pulse Ox O2 Delivery O2 Flow Rate FiO2 04/04/18 18:14 20 04/04/18 16:15 97.9 83 141/75 (97) 96 04/04/18 15:18 Room Air 04/03/18 08:16 2.0 I&O- Last 24 Hours up to 6 AM 04/04/18 06:00 Intake Total 2060 ml Output Total 675 ml Balance 1385 ml THUAN JHAVERI MD Apr 04, 2018 19:14
[2018-04-04 19:15] VITALS: BP 117/57
[2018-04-04] MEDS: FAMOTIDINE 20 MG TAB PO SCH (20:18)
[2018-04-04] MEDS: PERCOCET 5MG/325MG TAB PO PRN (20:22)
[2018-04-04 22:00] VITALS: BP 110/58
[2018-04-05 02:00] VITALS: BP 102/57
[2018-04-05] MEDS: ONDANSETRON 4MG/2ML VIAL (J2405) IV PRN ×2 (02:11→11:01)
[2018-04-05] MEDS: PERCOCET 5MG/325MG TAB PO PRN ×4 (02:11→22:47)
[2018-04-05] MEDS: MORPHINE 4 MG/ML 1ML VIAL/SYRINGE (J2270) IV PRN ×2 (05:59→20:05)
[2018-04-05 06:00] VITALS: BP 121/57
[2018-04-05 06:29] LABS: HEMATOCRIT 32.2 % (36.0-47.0); MEAN CORPUSCULAR HEMOGLOBIN 37.8 pg (27.0-33.0); MEAN CORPUSCULAR HGB CONC 34.2 g/dl (32.0-36.5); MEAN CORPUSCULAR VOLUME 110.7 fl (80.0-96.0); RED BLOOD COUNT 2.91 10^6/uL (4.00-5.40); WHITE BLOOD COUNT 4.8 10^3/uL (4.0-10.0)
[2018-04-05 06:30] LABS: PLATELET COUNT, AUTOMATED 76 10^3/uL (150-450)
[2018-04-05 06:36] LABS: INR 1.52; PROTHROMBIN TIME 18.5 SECONDS (12.1-14.4)
[2018-04-05 06:52] LABS: ALBUMIN 2.7 GM/DL (3.2-5.2); ALT/SGPT 48 U/L (12-78); BILIRUBIN,TOTAL 4.1 MG/DL (0.2-1.0); BLOOD UREA NITROGEN 3 MG/DL (7-18); CALCIUM LEVEL 7.5 MG/DL (8.5-10.1); CARBON DIOXIDE LEVEL 29 MEQ/L (21-32); CHLORIDE LEVEL 103 MEQ/L (98-107); CREATININE FOR GFR 0.52 MG/DL (0.55-1.30); GLOMERULAR FILTRATION RATE > 60.0 (>58); GLUCOSE, FASTING 105 MG/DL (70-100); MAGNESIUM LEVEL 1.9 MG/DL (1.8-2.4); POTASSIUM SERUM 3.4 MEQ/L (3.5-5.1); SODIUM LEVEL 139 MEQ/L (136-145); TOTAL PROTEIN 6.1 GM/DL (6.4-8.2)
[2018-04-05] MEDS ORDERED: POTASSIUM CHLORIDE 10 MEQ SR TABLET PO ONE (07:45)
[2018-04-05] MEDS: CARVedilol 12.5 MG TAB PO SCH ×3 (09:00→22:48)
[2018-04-05] MEDS: FOLIC ACID 1 MG TAB PO SCH (09:13)
[2018-04-05] MEDS: FAMOTIDINE 20 MG TAB PO SCH ×2 (09:14→20:03)
[2018-04-05] MEDS: FUROSEMIDE 20 MG TAB PO SCH (09:14)
[2018-04-05] MEDS: SPIRONOLACTONE 50 MG TAB PO SCH (09:14)
--- NOTE | 2018-04-05 09:30 | CR ---
DATE OF CONSULTATION: 04/05/2018 CONSULTING SERVICE: OBSTETRICS (OB)/GYNECOLOGY (PRIMER CHARGING TOOL SETTER). HISTORY: A 38-year-old G3, P3-0-0-4 female, hospital day #3, being admitted with heavy vaginal bleeding for several days. She passed clots. She has had persistent diffuse abdominal pain the whole time. Her periods have been irregular for the past year. She went for a span of 4-5 months with no periods. This heavy episode of bleeding is new for her. It was incidentally noted in the emergency room that she had evidence of jaundice, as well as enlarged liver, and was admitted for evaluation of liver disease. MEDICAL HISTORY: 1. Hypertension. 2. Hepatosplenomegaly. SURGICAL HISTORY: (C) section times two. SOCIAL HISTORY: The patient lives in [place]. She denies heavy alcohol use, although she admits to heavy alcohol use in the past. She is an active smoker. FAMILY HISTORY: Mother of possible pancreatic cancer. MEDICATIONS: - Coreg - senna PHYSICAL EXAMINATION: VITAL SIGNS: Blood pressure 121/57, pulse 81, respiratory rate 20, afebrile. No apparent distress. HEAD AND NECK EXAMINATION: Normal with mild jaundice. Mild icteric sclerae. LUNGS: Clear. HEART: Regular rate and rhythm. ABDOMEN: Nontender. Liver is markedly enlarged to palpation, though abdomen is nontender. EXTREMITIES: Nontender. There is trace edema. LABORATORIES: Hemoglobin 11.0 g/dL, platelets 76. Coagulation panel (coags) are elevated with PT of 20.7, PTT 43.0. Ultrasound of pelvis reveals 17-mm endometrial stripe. Otherwise, essentially normal examination. ASSESSMENT: A 38-year-old female presents with abnormal uterine bleeding in the face of cirrhosis of the liver with mild coagulopathy. PLAN: The patient's bleeding is now minimal spotting, so no acute intervention is needed. However, the patient will need long-term treatment. Treatment options discussed include oral progesterone, Mirena intrauterine device (IUD), or endometrial ablation procedure. The patient can followup in the office to discuss these options. I think the Mirena IUD option would not affect her liver function and may solve problem. There also is good evidence for endometrial ablation in patients who have coagulopathy. Options were discussed.
[2018-04-05 10:00] VITALS: BP 142/88
[2018-04-05 14:00] VITALS: BP 126/68
--- NOTE | 2018-04-05 17:44 | ECHO ---
DATE OF PROCEDURE: 04/05/2018 HEIGHT: 183 cm WEIGHT: 131 kg REFERRING PHYSICIAN: Dr. Tasneem Hsieh INDICATION: Dyspnea. 2D MEASUREMENTS: LVOT: 2.0 cm Left ventricle diastole: 6.6 cm Ventricular septum: 0.96 cm Posterior wall: 0.93 cm Left atrium: 4.5 cm Aortic root: 2.9 cm DOPPLER MEASUREMENTS: Aortic valve velocity: 175 cm/s LVOT velocity: 90.9 cm/s LVOT VTI: 19.6 cm Mitral E velocity: 74.7 cm/s Mitral A velocity: 74.2 cm/s Mitral deceleration time: 208 ms Trace tricuspid regurgitation. Pulmonary artery systolic pressure: 158 ms MITRAL ANNULAR TISSUE DOPPLER: E prime septal: 7.1 cm/s E prime lateral: 7.3 cm/s DESCRIPTION: Rhythm was sinus. This was a moderately technically difficult echocardiogram. No pericardial effusion. This was a 2D, M-mode, color flow Doppler and pulse wave Doppler examination and included mitral annular tissue Doppler. CONCLUSIONS: 1. Mild left ventricle dilatation with normal left ventricular (LV) wall thickness. Normal regional LV wall motion and wall thickening. Normal LV systolic function. Left ventricular ejection fraction (LVEF) 60-65% by visual estimate. Normal LV diastolic function for age. 2. Moderate left atrial dilatation. 3. Suggestive of normal pulmonary artery systolic pressure. Normal right ventricle size and systolic function. Normal right atrial size. 4. Otherwise normal appearing echocardiogram Doppler findings.
--- NOTE | 2018-04-05 19:04 | IPNPDOC ---
Text Note Date of Service The patient was seen on 04/05/18. NOTE Patient seen and examined. Reported suprapubic crampiness intermittently. Denies any chest pain, pressure or discomfort. Denies any fevers or chills. vaginal bleeding stopped PHYSICAL EXAMINATION: GENERAL: Patient alert, comfortable, no acute distress. HEENT: Normocephalic, atraumatic. PULMONARY: Bilateral clear. CARDIAC: Regular, S1, S2. ABDOMEN: Soft, suprapubic tenderness to deep palpation. No rebound, no guarding. Positive bowel sounds. EXTREMITIES: No clubbing, cyanosis, or edema. ASSESSMENT AND PLAN: This is a 38-year-old female patient with family history of pancreatic cancer, history of hypertension, presented with progressively worsening crampy abdominal pain and vaginal bleeding, also found to be jaundiced with hyperbilirubinemia. 1. Vaginal bleeding, unknown etiology. Consulted obstetrics/gynecology (LIQUOR BRIDGE OPERATOR HELPER). Pelvic ultrasound. INR, PT/PTT, fibrinogen. Monitor hemoglobin and hematocrit, transfuse as needed. Vitamin K has been given. Pain medication is prescribed. Further recommendation as per obstetrics/gynecology (LIQUOR BRIDGE OPERATOR HELPER). 2. Jaundice with hyperbilirubinemia status post CT abdomen, right upper quadrant ultrasound, as well as MRCP. No evidence of obstruction is found at this time. Further workup has been ordered including antimitochondrial antibodies positive, anti-smooth muscle antibodies to rule out autoimmune hepatitis. Gastroenterology consulted. Tylenol level and hepatitis panel negative. Continue to follow l iver function. Monitor hemoglobin and hematocrit. Vitamin K has been prescribed. likely 2/2 autoimmune hepatitis/ primary billiary cholangitis and IRIZARRY 3. Thrombocytopenia, likely secondary to cirrhosis. Continue to monitor. Transfuse as needed. 4. 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 Vitamin K has been prescribed. Will continue to monitor. 5. 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 s/p EGD by GI, no evidence of cancer. banding of esophageal varices beta dia, lasix, spirolactone. Pepcid, gi f/u outpatient 6 Hypertension. Continue Coreg. 7 Deep venous thrombosis (DVT) prophylaxis. Given vaginal bleed, thromboembolism deterrents (TEDs) and sequentials only. DISPOSITION: dc in 24 hr VS,[place], I+O VS, Fishbone, I+O Laboratory Tests 04/05/18 05:30 Red Blood Count 2.91 L, Mean Corpuscular Volume 110.7 H, Mean Corpuscular Hemoglobin 37.8 H, Mean Corpuscular Hemoglobin Concent 34.2, Red Cell Distribution Width 15.7 H, Calcium Level 7.5 L, Aspartate Amino Transf (AST/SGOT) 293 H, Alanine Aminotransferase (ALT/SGPT) 48, Alkaline Phosphatase 135 H, Total Bilirubin 4.1 H, Total Protein 6.1 L, Albumin 2.7 L Vital Signs Date Time Temp Pulse Resp B/P (MAP) Pulse Ox O2 Delivery O2 Flow Rate FiO2 04/05/18 15:39 16 04/05/18 14:00 97.8 91 126/68 (87) 96 04/04/18 15:18 Room Air 04/03/18 08:16 2.0 I&O- Last 24 Hours up to 6 AM 04/05/18 06:00 Intake Total 660 ml Output Total 300 ml Balance 360 ml THUAN JHAVERI MD Apr 05, 2018 19:04
[2018-04-05 22:00] VITALS: BP 124/60
[2018-04-06 02:00] VITALS: BP 131/72
[2018-04-06] MEDS: MORPHINE 4 MG/ML 1ML VIAL/SYRINGE (J2270) IV PRN (02:40)
[2018-04-06 06:00] VITALS: BP 128/59
[2018-04-06 06:59] LABS: HEMATOCRIT 33.8 % (36.0-47.0); HEMOGLOBIN 11.5 g/dl (12.0-15.5); MEAN CORPUSCULAR HEMOGLOBIN 37.8 pg (27.0-33.0); MEAN CORPUSCULAR VOLUME 111.2 fl (80.0-96.0); RED BLOOD COUNT 3.04 10^6/uL (4.00-5.40); WHITE BLOOD COUNT 4.9 10^3/uL (4.0-10.0)
[2018-04-06 07:04] LABS: PLATELET COUNT, AUTOMATED 84 10^3/uL (150-450)
[2018-04-06 07:09] LABS: INR 1.44; PROTHROMBIN TIME 17.8 SECONDS (12.1-14.4)
[2018-04-06 07:18] LABS: ALBUMIN 2.7 GM/DL (3.2-5.2); ALT/SGPT 47 U/L (12-78); BILIRUBIN,TOTAL 4.4 MG/DL (0.2-1.0); BLOOD UREA NITROGEN 4 MG/DL (7-18); CALCIUM LEVEL 7.5 MG/DL (8.5-10.1); CARBON DIOXIDE LEVEL 28 MEQ/L (21-32); CHLORIDE LEVEL 102 MEQ/L (98-107); CREATININE FOR GFR 0.48 MG/DL (0.55-1.30); GLOMERULAR FILTRATION RATE > 60.0 (>58); GLUCOSE, FASTING 98 MG/DL (70-100); POTASSIUM SERUM 3.6 MEQ/L (3.5-5.1); SODIUM LEVEL 137 MEQ/L (136-145); TOTAL PROTEIN 6.4 GM/DL (6.4-8.2)
[2018-04-06] MEDS: SPIRONOLACTONE 50 MG TAB PO SCH (08:36)
[2018-04-06] MEDS: FUROSEMIDE 20 MG TAB PO SCH (08:36)
[2018-04-06] MEDS: FAMOTIDINE 20 MG TAB PO SCH (08:36)
[2018-04-06] MEDS: FOLIC ACID 1 MG TAB PO SCH (08:36)
[2018-04-06 08:39] VITALS: BP 128/59
[2018-04-06] MEDS: CARVedilol 12.5 MG TAB PO SCH (08:39)
[2018-04-06] MEDS: PERCOCET 5MG/325MG TAB PO PRN (08:41)
[2018-04-06] MEDS ORDERED: PHYTONADIONE 5 MG TAB PO SCH (10:00)
[2018-04-06] MEDS ORDERED: KETOROLAC 30 MG/ML VIAL (J1885) IV ONE (10:00)
[2018-04-06] MEDS ORDERED: RANI15TA PO (10:26)
[2018-04-06] MEDS ORDERED: PHYT5TA PO (10:26)
[2018-04-06] MEDS ORDERED: ALDA50TA2 PO (10:26)
[2018-04-06] MEDS ORDERED: OXYC15TA76 PO (10:26)
[2018-04-06] MEDS ORDERED: FOLI1TAB11 PO (10:26)
[2018-04-06] MEDS ORDERED: FURO20TA2 PO (10:26)
[2018-04-06] MEDS ORDERED: ZOFR4TAB16 PO (11:53)
--- NOTE | 2018-04-06 16:20 | DSES ---
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 HISTORY OF PRESENT ILLNESS: This is a 38-year-old female patient with underlying medical history of hypertension, follows with Dr. Morales for past abdominal pain with family history of pancreatic cancer, had colonoscopy with multiple polyps removal, also history of hepatomegaly with some mild liver function test (LFT) elevations, presented to the emergency department (ED) with 3 weeks of progressively worsening uterine bleeding, passing multiple large clots, suprapubic abdominal cramps, used multiple pads throughout the day, also noted to be jaundiced with scleral icterus with transaminitis. HOSPITAL COURSE: Patient is admitted to the hospital. Hemoglobin and hematocrit is monitored. Consulted gastroenterology (GI), Dr. Morales. MRCP has been ordered. Bilirubin was monitored. Coagulopathy was monitored. Vitamin K was prescribed. Status post EGD by Dr. Morales. Found to have esophageal varices that was banded. Started on spironolactone and Lasix as per Dr. Morales. Pepcid was also started. Patient's vaginal bleeding progressively improved. Liver function also stabilized as well as coagulopathy improved. Gynecology (INSIDE SALES ASSISTANT) provider was consulted, recommended outpatient followup. Patient currently tolerating oral with minimal spotting from vagina. Ready to be discharged with further care as outpatient. Autoimmune hepatitis workup has been sent. Patient has positive antimitochondrial antibody suggestive of possible autoimmune hepatitis and possible primary biliary cholangitis. VITAL SIGNS: Temperature 97.7, pulse 82, respirations 16, blood pressure 128/59, pulse oximetry 98% on room air. LABORATORY DATA: WBC 4.9, hemoglobin and hematocrit 11.5/33.8, platelets 84, sodium 137, potassium 3.6, chloride 102, bicarbonate 28, BUN 4, creatinine 0.48. PHYSICAL EXAMINATION: GENERAL: Patient comfortable, in no acute distress. HEENT: Normocephalic, atraumatic. PULMONARY: Bilateral clear. CARDIAC: Regular, S1, S2. ABDOMEN: Soft, suprapubic tenderness, minimal, no rebound, no guarding. Positive bowel sounds. EXTREMITIES: No clubbing, cyanosis, or edema. DISCHARGE MEDICATIONS: - folic acid 1 mg by mouth daily - Lasix 20 mg by mouth daily - Zofran 4 mg by mouth every 6 hours as needed - oxycodone 15 mg by mouth four times a day as needed - vitamin K 5 mg by mouth daily - ranitidine 150 mg by mouth twice a day - spironolactone 50 mg by mouth daily - Coreg 18.75 mg by mouth twice a day - Senna 8.6 mg by mouth daily as needed DISCHARGE RECOMMENDATIONS: Please seen fairing man (INSIDE SALES ASSISTANT), Dr. Gay, in [address] Morales in 7 days. Avoid Tylenol. Avoid alcohol. Check liver function, complete blood count (CBC), INR with primary care provider or Dr. Morales. Return to the hospital if symptoms worsen.
== END 2018-04-06 12:00 | disposition home or self-care (01) ==
LOC: M ED 03:51 → EDBD 03:51 → M ED INP 04-03 03:39 → M MSPAV 04-03 16:13
PROVIDERS: ADMIT Internal Medicine; ATTEND Hospitalist
PROC: 0DB98ZX Excision of Duodenum, Via Natural or Artificial Opening Endoscopic, Diagnostic (ICD-10-PCS; principal; 2018-04-03)
DX: K74.60 Unspecified cirrhosis of liver (principal); K83.09 Other cholangitis; D68.4 Acquired coagulation factor deficiency; D69.6 Thrombocytopenia, unspecified; Z68.41 Body mass index [BMI] 40.0-44.9, adult; K75.81 Nonalcoholic steatohepatitis (NASH); K75.4 Autoimmune hepatitis; I85.10 Secondary esophageal varices without bleeding; I10 Essential (primary) hypertension; E66.9 Obesity, unspecified; K31.89 Other diseases of stomach and duodenum; K29.70 Gastritis, unspecified, without bleeding; N93.9 Abnormal uterine and vaginal bleeding, unspecified; Z79.899 Other long term (current) drug therapy; F17.200 Nicotine dependence, unspecified, uncomplicated

== ENCOUNTER → 2018-05-02 | Outpatient (CLI) | payer OTHER ==
[~2018-05-02] MED LIST changes: +ALDA50TA2 PO; +FOLI1TAB11 PO; +FURO20TA2 PO; +OXYC15TA76 PO; +PHYT5TA PO; +RANI15TA PO; +SENN18TA PO
[2018-05-02 13:06] LABS: BASO # 0.1 10^3/uL (0.0-0.2); BASO % 0.8 % (0.0-1.0); EOS # 0.1 10^3/uL (0.0-0.50); EOS % 1.4 % (0.0-3.0); HEMATOCRIT 37.4 % (36.0-47.0); HEMOGLOBIN 12.8 g/dl (12.0-15.5); LYMPH # 2.6 10^3/uL (1.5-4.5); LYMPH % 32.8 % (24.0-44.0); MEAN CORPUSCULAR HEMOGLOBIN 37.9 pg (27.0-33.0); MEAN CORPUSCULAR HGB CONC 34.2 g/dl (32.0-36.5); MEAN CORPUSCULAR VOLUME 110.7 fl (80.0-96.0); MONO # 0.5 10^3/uL (0.0-0.8); MONO % 6.9 % (0.0-5.0); NEUTROPHILS # 4.5 10^3/uL (1.8-7.7); NEUTROPHILS % 57.8 % (36.0-66.0); PLATELET COUNT, AUTOMATED 103 10^3/uL (150-450); RED BLOOD COUNT 3.38 10^6/uL (4.00-5.40); WHITE BLOOD COUNT 7.8 10^3/uL (4.0-10.0)
[2018-05-02 13:19] LABS: SODIUM,RANDOM URINE 94 MEQ/L; TOTAL PROTEIN,RANDOM URINE < 5.0 MG/DL (0.0-12.0)
[2018-05-02 13:20] LABS: INR 1.46
[2018-05-02 13:22] LABS: PARTIAL THROMBOPLASTIN TIME 44.5 SECONDS (25.4-37.6)
[2018-05-02 13:28] LABS: ALT/SGPT 31 U/L (12-78); BILIRUBIN,DIRECT 1.7 MG/DL (0.0-0.2); BILIRUBIN,TOTAL 3.3 MG/DL (0.2-1.0); BLOOD UREA NITROGEN 5 MG/DL (7-18); CALCIUM LEVEL 8.9 MG/DL (8.5-10.1); CARBON DIOXIDE LEVEL 27 MEQ/L (21-32); CHLORIDE LEVEL 104 MEQ/L (98-107); CREATININE FOR GFR 0.74 MG/DL (0.55-1.30); GLOMERULAR FILTRATION RATE > 60.0 (>58); GLUCOSE, FASTING 109 MG/DL (70-100); SODIUM LEVEL 136 MEQ/L (136-145); TOTAL PROTEIN 7.8 GM/DL (6.4-8.2)
== END ==
LOC: M LAB 11:48
PROVIDERS: ATTEND Internal Medicine Gastroenterology
DX: K74.60 Unspecified cirrhosis of liver (principal)

== ENCOUNTER 2018-05-13 00:51 | Inpatient (IN) | payer OTHER ==
[~2018-05-13] VITALS: Ht 182.9 cm; Wt 114.0 kg
[2018-05-13] VITALS (7 sets, daily range): BP systolic 105–151; BP diastolic 51–91
[2018-05-13] MEDS ORDERED: ASPIRIN 81 MG CHEW TABLET PO ONE (01:30)
[2018-05-13 01:44] LABS: BASO # 0.1 10^3/uL (0.0-0.2); BASO % 0.7 % (0.0-1.0); EOS # 0.1 10^3/uL (0.0-0.50); EOS % 0.5 % (0.0-3.0); HEMATOCRIT 33.5 % (36.0-47.0); HEMOGLOBIN 11.7 g/dl (12.0-15.5); LYMPH # 2.9 10^3/uL (1.5-4.5); LYMPH % 27.9 % (24.0-44.0); MEAN CORPUSCULAR HEMOGLOBIN 36.8 pg (27.0-33.0); MEAN CORPUSCULAR HGB CONC 34.9 g/dl (32.0-36.5); MEAN CORPUSCULAR VOLUME 105.3 fl (80.0-96.0); MONO # 0.6 10^3/uL (0.0-0.8); MONO % 5.3 % (0.0-5.0); NEUTROPHILS # 6.8 10^3/uL (1.8-7.7); NEUTROPHILS % 65.3 % (36.0-66.0); RED BLOOD COUNT 3.18 10^6/uL (4.00-5.40); WHITE BLOOD COUNT 10.3 10^3/uL (4.0-10.0)
[2018-05-13] MEDS: NITROGLYCERIN 0.4 MG SUBL TABLET SL PRN (01:52)
[2018-05-13 02:11] LABS: BLOOD UREA NITROGEN 4 MG/DL (7-18); CALCIUM LEVEL 8.3 MG/DL (8.5-10.1); CARBON DIOXIDE LEVEL 26 MEQ/L (21-32); CHLORIDE LEVEL 101 MEQ/L (98-107); CK-MB VALUE MASS < 1.0 NG/ML (<3.6); CPK CREATINE PHOSPHOKINASE 94 U/L (26-192); GLOMERULAR FILTRATION RATE > 60.0 (>58); GLUCOSE, FASTING 88 MG/DL (70-100); MB/CK RELATIVE INDEX 1.06 (< OR =4); POTASSIUM SERUM 3.2 MEQ/L (3.5-5.1); SODIUM LEVEL 139 MEQ/L (136-145); TROPONIN I < 0.02 NG/ML (< 0.10)
[2018-05-13 02:13] LABS: PLATELET COUNT, AUTOMATED 77 10^3/uL (150-450)
[2018-05-13] MEDS ORDERED: ISOVUE-370 76% 125ML VIAL (Q9967 PER ML) As Ordered ONE (02:20)
--- NOTE | 2018-05-13 04:27 | REPVR ---
EXAM: CT Angiography Chest With Contrast EXAM DATE/TIME: 05/13/2018 1:30 AM CLINICAL HISTORY: 38 years old, female; Chest pain; R/O PE TECHNIQUE: Imaging protocol: Axial computed tomographic angiography images of the chest with intravenous contrast using CT angiography protocol. Coronal and sagittal reformatted images were created and reviewed. 3D rendering: MIP reconstructed images were created and reviewed. Radiation optimization: All CT scans at this facility use at least one of these dose optimization techniques: automated exposure control; mA and/or kV adjustment per patient size (includes targeted exams where dose is matched to clinical indication); or iterative reconstruction. Contrast material: iso Contrast volume: 75 ml Contrast route: ac COMPARISON: CR Chest, 2 view PA, Lat 03/18/2014 2:30 AM FINDINGS: Limitations: Respiratory motion artifact degrades the image quality. Pulmonary arteries: There is no pulmonary embolism in the main, lobar, or segmental pulmonary arteries. The timing of the contrast bolus was suboptimal for the assessment of the subsegmental pulmonary arteries, which are poorly opacified and degraded by respiratory motion artifact. Aorta: There is no thoracic aortic aneurysm, pseudoaneurysm, penetrating atherosclerotic ulcer, or dissection. Lungs: There is a 3 mm calcified granuloma in the left lower lobe. The lungs are otherwise clear. There is no lung consolidation, pulmonary infarct, or mass. No emphysematous changes or interstitial lung disease is noted. The major airways are patent. Pleural space: Normal. No pneumothorax. No pleural effusion. Heart: No cardiomegaly. No pericardial effusion. The ratio of the diameter of the right ventricle to the diameter of the left ventricle measures less than 1, which is within normal limits and there is no evidence for a right ventricular strain. Mediastinum: No mediastinal mass, hemorrhage, or pneumomediastinum is noted. Lymph nodes: Normal. No enlarged lymph nodes. Bones/joints: The imaged bony structures are intact. There is no suspicious osteolytic or osteoblastic lesion. There are endplate spurs in the thoracic spine. Soft tissues: Unremarkable. IMPRESSION: 1. No acute findings in the chest. 2. No pulmonary embolism in the main, lobar, or segmental pulmonary arteries. The timing of the contrast bolus was suboptimal for the assessment of the subsegmental pulmonary arteries, which are poorly opacified and degraded by respiratory motion artifact. Electronically signed by: Candido Khanna On 05/13/2018 04:26:33 AM
[2018-05-13] MEDS ORDERED: LORazepam 2 MG/ML VIAL (J2060) IV STA (05:09)
[2018-05-13] MEDS ORDERED: POTASSIUM CHLORIDE 10 MEQ SR TABLET PO ONE (05:45)
[2018-05-13] MEDS: SUCRALFATE 1 GM TAB PO SCH ×3 (06:00→22:14)
--- NOTE | 2018-05-13 06:54 | ECGEPIP ---
Stationary ECG Study [facility] - ED Test Date: 2018-05-13 Pat Name: DARON TOURE Department: Room: - Gender: F Alarm Service Technician: VANDANA : 1980 Requested By: ALONA De La Rosa Order Number: [id number] Reading MD: Tank Contreras Measurements Intervals [place] Rate: 99 P: 43 [place]: 156 QRS: 48 QRSD: 108 T: 11 QT: 384 QTc: 494 Interpretive Statements SINUS RHYTHM POSSIBLE LEFT ATRIAL ENLARGEMENT NONSPECIFIC T-WAVE ABNORMALITY RATE CHANGE COMPARED TO 03/18/14 Electronically Signed On 05-13-2018 6:54:10 EDT by Tank Contreras
[2018-05-13] MEDS ORDERED: PANTOPRAZOLE 40MG INJ (PROTONIX) (C9113) IV ONE (08:00)
[2018-05-13] MEDS ORDERED: LORazepam 1 MG TAB PO STA (08:05)
[2018-05-13 08:36] LABS: CK-MB VALUE MASS < 1.0 NG/ML (<3.6); CPK CREATINE PHOSPHOKINASE 177 U/L (26-192); MB/CK RELATIVE INDEX 0.56 (< OR =4); TROPONIN I < 0.02 NG/ML (< 0.10)
[2018-05-13 08:41] LABS: INR 1.4; PROTHROMBIN TIME 17.4 SECONDS (12.1-14.4)
[2018-05-13 08:58] LABS: ALBUMIN 3.1 GM/DL (3.2-5.2); BILIRUBIN,DIRECT 2.2 MG/DL (0.0-0.2); BILIRUBIN,TOTAL 5.2 MG/DL (0.2-1.0); TOTAL PROTEIN 8.1 GM/DL (6.4-8.2)
[2018-05-13] MEDS: SPIRONOLACTONE 50 MG TAB PO SCH (09:00)
[2018-05-13] MEDS: NS 1,000 ML IV SCH ×2 (10:45→19:57)
[2018-05-13] MEDS ORDERED: PANTOPRAZOLE SODIUM 40 MG in D5W 50 ML IV SCH (10:45)
[2018-05-13] MEDS ORDERED: RANI150T PO (10:47)
[2018-05-13] MEDS ORDERED: ONDANSETRON 4MG/2ML VIAL (J2405) IV PRN (11:00)
[2018-05-13] MEDS ORDERED: CIPROFLOXACIN 400 MG in APPROPRIATE DILUENT 1 EA IV SCH (12:00)
[2018-05-13 14:03] LABS: HEMATOCRIT 32.7 % (36.0-47.0); HEMOGLOBIN 11.4 g/dl (12.0-15.5); MEAN CORPUSCULAR HEMOGLOBIN 36.9 pg (27.0-33.0); MEAN CORPUSCULAR HGB CONC 34.9 g/dl (32.0-36.5); MEAN CORPUSCULAR VOLUME 105.8 fl (80.0-96.0); RED BLOOD COUNT 3.09 10^6/uL (4.00-5.40); WHITE BLOOD COUNT 8.8 10^3/uL (4.0-10.0)
[2018-05-13] MEDS: LORazepam 2 MG/ML VIAL (J2060) IV PRN ×2 (14:03→22:15)
[2018-05-13 14:05] LABS: PLATELET COUNT, AUTOMATED 64 10^3/uL (150-450)
--- NOTE | 2018-05-13 14:57 | IPNPDOC ---
Text Note Date of Service The patient was seen on 05/13/18. NOTE I was asked to consult on Ms. Colon who is a 38-year-old female who presented herself last night with chest pain of acute onset. While she was in the emergency room she threw up is as noted to be bloody roughly about cup full. Review of her medical records shows a previous hospitalization in March where she underwent upper endoscopy done by Dr. Morales. She was found to have evidence of duodenitis, portal hypertensive gastropathy and grade 1 varices which was not bleeding at that time. She was recognized to have cirrhosis as well as hepatitis E. She had follow-up with Dr. Morales was last seen by him last Saturday and repeat labs shows improvement of her liver function test. She denies any ongoing abdominal discomfort nor any prior history of ulcers or bleeding prior to this episode. In the emergency room she continues to be hemodynamically stable. Her cardiac workup likewise workup for pulmonary embolism, thoracic dissection or aneurysm been negative. Her initial hemoglobin and hematocrit was noted to be 11.7 and 33.5. Trauma examination I note that she is slightly tachycardic with heart rates were and were between 108-114, she is hemodynamically stable. She appears mildly jaundiced with mild icteric sclerae. She is very anxious. Lungs sounds are clear to auscultation bilaterally. She is moderately obese. Her abdomen is nondistended and benign in appearance. Nontender on palpation over the epigastric and right upper quadrant area. She is wearing a cast on her right ankle. Impression 1. Noncardiac chest pain 2. Upper GI bleeding 3. Cirrhosis I think it'll be prudent to check for the source of bleeding given that she has a history of portal hypertensive gastropathy as well as esophageal varices. She remains hemodynamically stable. A checked her follow-up labs and this has been stable. She shows me a vomit bag with a scant amount of coffee-ground emesis with some blood clots. Given that she is cirrhosis I recommend for her to be in antibiotics started for now. Also put her on PPI. Further recommendations after endoscopy. It may also be prudent to give Dr. Morales a call with regards to overall management of her cirrhosis. VS,Shielae, I+O VS, Chrissbone, I+O Laboratory Tests 05/13/18 01:34 Red Blood Count 3.18 L, Mean Corpuscular Volume 105.3 H, Mean Corpuscular Hemoglobin 36.8 H, Mean Corpuscular Hemoglobin Concent 34.9, Red Cell Distribution Width 12.9, Neutrophils (%) (Auto) 65.3, Lymphocytes (%) (Auto) 27.9, Monocytes (%) (Auto) 5.3 H, Eosinophils (%) (Auto) 0.5, Basophils (%) (Auto) 0.7, Neutrophils # (Auto) 6.8, Lymphocytes # (Auto) 2.9, Monocytes # (Auto) 0.6, Eosinophils # (Auto) 0.1, Basophils # (Auto) 0.1, Calcium Level 8.3 L, Total Creatine Kinase 94 05/13/18 13:46 Red Blood Count 3.09 L, Mean Corpuscular Volume 105.8 H, Mean Corpuscular H emoglobin 36.9 H, Mean Corpuscular Hemoglobin Concent 34.9, Red Cell Distribution Width 13.2 Vital Signs Date Time Temp Pulse Resp B/P (MAP) Pulse Ox O2 Delivery O2 Flow Rate FiO2 05/13/18 13:15 106 107/56 (73) 94 05/13/18 09:30 20 05/13/18 06:18 Room Air 05/13/18 01:09 99.1 BAILEY MILLER MD May 13, 2018 14:57
[2018-05-13] MEDS ORDERED: ONDANSETRON 4 MG TAB (S0181) PO PRN (15:30)
--- NOTE | 2018-05-13 15:39 | HPE ---
DATE OF ADMISSION: 05/13/3018 PRIMARY CARE PROVIDER: Dr. Perez HISTORY OF PRESENT ILLNESS: This patient is a 38-year-old female with a past medical history significant for liver cirrhosis from nonalcoholic steatohepatitis (IRIZARRY), hypertension, presented to [facility] for chest discomfort. Patient stated that around midnight she started having some discomfort at the mid upper chest without radiation. The discomfort is intermittent. Patient does not know what triggered worsening of the pain. Patient complained about increased palpitations and increased anxiety. In the emergency room patient was found to have acute onset of hematemesis around 9 a.m., blood was noted by the emergency department (ED) staff. Hospital team was called for admission. PAST MEDICAL HISTORY: 1. Liver cirrhosis from IRIZARRY. 2. Hyperbilirubinemia. 3. Autoimmune hepatitis. 4. Hypertension. 5. Morbid obesity. PAST SURGICAL HISTORY: 1. section times two. 2. Right ankle surgery. ALLERGIES: No known drug allergies. SOCIAL HISTORY: Patient smokes 3-4 packs of cigarettes daily for 15 years. She denies alcohol use. She denies recreational drug use. REVIEW OF SYSTEMS: GENERAL: Denies any fever or chills. HEENT: Denies vision changes or auditory changes. CARDIOVASCULAR: Denies some dull mid upper chest discomfort, patient described it as a heaviness without any radiation. The discomfort occurs intermittently with no significant triggers, never happened before. Patient also complained about palpitations. RESPIRATORY: Denies shortness of breath, cough, or sputum production. GASTROINTESTINAL (GI): Patient noted to have hematemesis. No abdominal pain. Denies diarrhea. MUSCULOSKELETAL: Patient had a recent fall resulting in the right ankle fracture status post repair. NEUROLOGICAL: Denies numbness or tingling. PHYSICAL EXAMINATION: VITAL SIGNS: Temperature 99.1, pulse 104, respiratory rate 20, blood pressure 112/59, pulse oximetry 95% in room air. GENERAL: Anxious, mild distress, alert and awake. HEENT: Normocephalic, atraumatic. Extraocular motors grossly intact. CARDIOVASCULAR: Tachycardic, positive S1, S2. LUNGS: Clear to auscultation bilaterally. ABDOMEN: Soft, nontender, bowel sounds present. EXTREMITIES: No edema appreciated. NEUROLOGICAL: Sensation to fine touch grossly intact. Muscle strength 5/5. LABORATORY DATA: WBC 8.8, hemoglobin 11.4, hematocrit 32.7, platelet [place] 64, sodium 139, potassium 3.2, chloride 101, carbon dioxide 26, BUN 4, creatinine 0.6, GFR greater than 60, fasting glucose 88, calcium 8.9, total bilirubin 5.2, direct bilirubin 2.2, AST 267, ALT 41, alkaline phosphatase 132, total protein 8.1, albumin 3.1. ASSESSMENT AND PLAN: 1. Upper gastrointestinal (GI) bleeding. Patient admitted to progressive care unit (PCU) under inpatient status. Put on nothing by mouth, Protonix drip, Carafate. General surgery consulted. Patient did have a recent scope that was performed in March 2018, patient was found to have esophageal varices. Continue to follow hemoglobin and hematocrit. Blood consent obtained, will transfuse if needed. 2. Cirrhosis from nonalcoholic steatohepatitis (IRIZARRY) and autoimmune hepatitis. Patient follows with Dr. Morales in the outpatient setting and patient is scheduled for upper endoscopy. Will resume medication after the procedure. Patient has been taking Lasix, spironolactone, and carvedilol. 3. Hypertension, on diuretics. 4. Nonspecific chest pain. Two sets of troponins was negative. No significant ST changes. Currently we are looking for the source of upper gastrointestinal (GI) bleeding. Will continue to monitor. 5. Deep venous thrombosis (DVT) prophylaxis. Patient has acute bleeding. Anticoagulation on hold. Patient will be on thromboembolism deterrents (TEDs) and compression.
[2018-05-13] MEDS ORDERED: LIDOCAINE 2% INJ 100 MG/5 ML SDV (FOR ANES.) As Ordered ONE (15:47)
[2018-05-13] MEDS ORDERED: fentaNYL 100 MCG/2 ML INJECTION (J3010) As Ordered ONE (15:47)
[2018-05-13] MEDS ORDERED: ONDANSETRON 4MG/2ML VIAL (J2405) As Ordered ONE (15:47)
[2018-05-13] MEDS ORDERED: PROPOFOL 200 MG/20 ML VIAL As Ordered ONE ×2 (15:47→16:01)
--- NOTE | 2018-05-13 16:09 | ROOR ---
Patient Name: Shira Colon Procedure Date: 05/13/2018 12:54 PM Date of : 1980 Age: 38 Gender: Female Note Status: Finalized Procedure: Upper GI endoscopy Indications: Hematemesis Providers: Monty Asher MD Referring MD: Marielena Brown DO Requesting Provider: Medicines: Monitored Anesthesia Care Complications: No immediate complications. Procedure: Pre-Anesthesia Assessment: - Prior to the procedure, a History and Physical was performed, and patient medications and allergies were reviewed. The patient is competent. The risks and benefits of the procedure and the sedation options and risks were discussed with the patient. All questions were answered and informed consent was obtained. Patient identification and proposed procedure were verified by the physician, the nurse and the traffic agent in the procedure room. Mental Status Examination: alert and oriented. Airway Examination: normal oropharyngeal airway and neck mobility. Respiratory Examination: clear to auscultation. CV Examination: normal. Prophylactic Antibiotics: The patient Patient already on ciprofloxacin antibiotics prophylactic antibiotics due to a prior history of cirrhosis. Prior Anticoagulants: The patient has taken no previous anticoagulant or antiplatelet agents. ASA Grade Assessment: III - A patient with severe systemic disease. After reviewing the risks and benefits, the patient was deemed in satisfactory condition to undergo the procedure. The anesthesia plan was to use monitored anesthesia care (MAC). Immediately prior to administration of medications, the patient was re-assessed for adequacy to receive sedatives. The heart rate, respiratory rate, oxygen saturations, blood pressure, adequacy of pulmonary ventilation, and response to care were monitored throughout the procedure. The physical status of the patient was re-assessed after the procedure. The Endoscope was introduced through the mouth, and advanced to the second part of duodenum. The upper GI endoscopy was accomplished without difficulty. The patient tolerated the procedure well. Findings: Localized mild mucosal changes characterized by erosion were found at the gastroesophageal junction. Estimated blood loss: none. There is a flat raw surface area that looks acute in nature, not associated with inflammation at the GE junction which probably bled a little (?shanice florence tear). No active bleeding noted during the procedure. No signs stigmata of bleed. Estimated blood loss: none. There is no endoscopic evidence of bleeding, erythema, erythema or inflammatory changes suggestive of gastritis, inflammation or ulceration in the entire examined stomach. The first portion of the duodenum and second portion of the duodenum were normal. Impression: - Eroded mucosa in the esophagus. - Normal first portion of the duodenum and second portion of the duodenum. - No specimens collected. Recommendation: - Admit the patient to hospital [facility] for ongoing care. Monty Asher MD Monty Asher MD 05/13/2018 4:08:55 PM Electronically signed by Monty Asher MD Number of Addenda: 0 Note Initiated On: 05/13/2018 12:54 PM Estimated Blood Loss: Estimated blood loss: none.
[2018-05-13] MEDS ORDERED: LR 1,000 ML IV SCH (16:30)
[2018-05-13] MEDS ORDERED: fentaNYL 100 MCG/2 ML INJECTION (J3010) IV PRN (16:30)
[2018-05-13] MEDS ORDERED: CARVedilol 12.5 MG TAB PO ONE (18:00)
[2018-05-13] MEDS ORDERED: LORazepam 2 MG/ML VIAL (J2060) IV ONE (18:00)
[2018-05-13] MEDS: FUROSEMIDE 20 MG TAB PO SCH (18:01)
[2018-05-13] MEDS: FOLIC ACID 1 MG TAB PO SCH (18:01)
--- NOTE | 2018-05-13 19:52 | ECGEPIP ---
Stationary ECG Study [facility] - ED Test Date: 2018-05-13 Pat Name: DARON TOURE Department: Room: - Gender: F Display Card Writer: CHICHI : 1980 Requested By: ALONA De La Rosa Order Number: [id number] Reading MD: Tank Contreras Measurements Intervals [place] Rate: 104 P: 43 [place]: 148 QRS: 61 QRSD: 99 T: 21 QT: 385 QTc: 509 Interpretive Statements SINUS TACHYCARDIA NSTTW ABNORMALITIES SIMILAR TO PRIOR ON SAME DATE Electronically Signed On 05-13-2018 19:51:53 EDT by Tank Contreras
[2018-05-13] MEDS: PANTOPRAZOLE 40MG INJ (PROTONIX) (C9113) IV SCH (19:56)
[2018-05-13] MEDS ORDERED: CARVedilol 12.5 MG TAB PO SCH (21:00)
[2018-05-13 21:11] LABS: HEMATOCRIT 29.7 % (36.0-47.0); HEMOGLOBIN 10.3 g/dl (12.0-15.5)
[2018-05-13] MEDS: CARVedilol 12.5 MG TAB PO SCH (22:15)
[2018-05-14] VITALS (8 sets, daily range): BP systolic 101–145; BP diastolic 52–75; PULSE 81
[2018-05-14] MEDS ORDERED: METOCLOPRAMIDE INJ 10MG/2ML VIAL (J2765) IV ONE (01:15)
[2018-05-14] MEDS: NITROGLYCERIN 0.4 MG SUBL TABLET SL PRN (03:26)
[2018-05-14] MEDS: SUCRALFATE 1 GM TAB PO SCH ×3 (05:53→22:40)
[2018-05-14] MEDS ORDERED: hydrOXYzine 50 MG TAB PO ONE (06:00)
[2018-05-14 06:16] LABS: HEMATOCRIT 29.2 % (36.0-47.0); MEAN CORPUSCULAR HEMOGLOBIN 36.8 pg (27.0-33.0); MEAN CORPUSCULAR HGB CONC 34.2 g/dl (32.0-36.5); MEAN CORPUSCULAR VOLUME 107.4 fl (80.0-96.0); RED BLOOD COUNT 2.72 10^6/uL (4.00-5.40); WHITE BLOOD COUNT 4.8 10^3/uL (4.0-10.0)
[2018-05-14 06:38] LABS: BLOOD UREA NITROGEN 7 MG/DL (7-18); CARBON DIOXIDE LEVEL 29 MEQ/L (21-32); CHLORIDE LEVEL 99 MEQ/L (98-107); CREATININE FOR GFR 0.71 MG/DL (0.55-1.30); GLOMERULAR FILTRATION RATE > 60.0 (>58); GLUCOSE, FASTING 96 MG/DL (70-100); MAGNESIUM LEVEL 1.3 MG/DL (1.8-2.4); POTASSIUM SERUM 3.5 MEQ/L (3.5-5.1); SODIUM LEVEL 135 MEQ/L (136-145)
[2018-05-14 07:05] LABS: PLATELET COUNT, AUTOMATED 47 10^3/uL (150-450)
[2018-05-14] MEDS: PANTOPRAZOLE 40MG INJ (PROTONIX) (C9113) IV SCH ×2 (08:50→22:42)
[2018-05-14] MEDS: MAG SULF 1GM/100ML (MAG RUN) 1 GM in APPROPRIATE DILUENT 1 EA IV SCH ×2 (08:51→09:59)
[2018-05-14] MEDS: SPIRONOLACTONE 50 MG TAB PO SCH (08:51)
[2018-05-14] MEDS: FOLIC ACID 1 MG TAB PO SCH (08:51)
[2018-05-14] MEDS: MAGNESIUM OXIDE 400 MG TAB (MAG-OX) PO SCH ×2 (08:51→22:41)
[2018-05-14] MEDS: FUROSEMIDE 20 MG TAB PO SCH (08:52)
[2018-05-14] MEDS: LORazepam 2 MG/ML VIAL (J2060) IV PRN (09:15)
[2018-05-14 09:52] LABS: CK-MB VALUE MASS < 1.0 NG/ML (<3.6); CPK CREATINE PHOSPHOKINASE 91 U/L (26-192); TROPONIN I < 0.02 NG/ML (< 0.10)
--- NOTE | 2018-05-14 12:44 | REP ---
AP LATERAL RIGHT ANKLE, THREE VIEWS: HISTORY: Casting. COMPARISON: 01/28/2018 A plaster cast is present obscuring detail. The patient is status post ORIF of fractures of the distal tibia and fibula. Metal hardware is present. The joint space is normal in appearance. IMPRESSION: The patient is status post ORIF of fractures of the distal tibia and fibula. There is anatomic alignment. Electronically Signed by Reinaldo Gann MD 05/14/2018 01:13 P
[2018-05-14] MEDS ORDERED: SLF 3 ML SYR IV PRN (12:45)
[2018-05-14] MEDS: SLF 3 ML SYR IV SCH ×2 (14:32→22:00)
[2018-05-14 14:43] LABS: INR 1.64; PROTHROMBIN TIME 19.7 SECONDS (12.1-14.4)
[2018-05-14 14:44] LABS: PARTIAL THROMBOPLASTIN TIME 42.2 SECONDS (25.4-37.6)
[2018-05-14 14:46] LABS: D-DIMER QUANT 3180.02 ng/ml (<500)
--- NOTE | 2018-05-14 14:59 | REP ---
ANKLE: Four views. HISTORY: Postop. FINDINGS: Two medial malleolar pins are seen transfixing the medial malleolar fracture in anatomic alignment. A screw plate fixation device seen applied to the distal fibula. There is some fracture callus formation along the medial cortex of the fibular fracture. No change in alignment. IMPRESSION: Healing distal tib/fib fracture status post ORIF. Electronically Signed by Robert Monsalve MD 05/14/2018 04:03 P
--- NOTE | 2018-05-14 20:27 | IPN ---
DATE: 05/14/2018 SUBJECTIVE: Patient is seen and examined in the room today. Patient stated her nausea and vomiting is improving; however, patient continues to experience intermittent upper chest discomfort. Patient also noticed to have increased anxiety. Patient stated she never had similar anxiety attack in the past. No history of anxiety, depression, panic attack. Patient stated she had a right ankle fracture. She had surgery, and patient has had a cast on since January 2018. Patient was supposed to have outpatient followup in February 2018; however, due to different reasons, patient has not been able to followup with orthopedic surgery, and patient has had the cast since January. OBJECTIVE: VITAL SIGNS: Temperature is 99.2, pulse 86, respirations 19, blood pressure 143/72, pulse oximetry 96% in room air. GENERAL: Anxious, alert and awake. HEENT: Normocephalic, atraumatic. Extraocular motor grossly intact. CARDIOVASCULAR: Positive S1, S2, regular rate. LUNGS: Clear to auscultation bilaterally. ABDOMEN: Soft, nontender. Bowel sounds present. EXTREMITIES: Right ankle cast in place. LABORATORY DATA: WBC 4.8, hemoglobin 10, hematocrit 29.2, platelet count is 47. Sodium is 135, potassium 3.5, chloride 99, carbon dioxide 29, BUN 7, creatinine 0.71, GFR greater than 60, fasting glucose is 96, calcium is 8, magnesium is 1.3. Total CK is 91. Troponin I is less than 0.02. ASSESSMENT AND PLAN: 1. Upper gastrointestinal (GI) bleeding. Patient had an upper endoscopy by Dr. Asher on 04/15/2018. Patient was found to have eroded mucosa in the esophagus. Nausea and vomiting are improving, on Protonix and Carafate. Continue to monitor any recurrence of the symptoms. 2. Upper chest discomfort. Patient could not recall what would exacerbate or trigger the pain. Troponin I has been negative times three sets. CT angiogram demonstrated no pulmonary embolism (PE). No acute finding in the chest. 3. Thrombocytopenia. Follow with disseminated intravascular coagulation (DIC) panel. Patient did have recent GI bleeding. Continue to follow with the workup. 4. Liver cirrhosis from nonalcoholic steatohepatitis (IRIZARRY), on Lasix and spironolactone. Recommend continued outpatient followup. 5. Autoimmune hepatitis. Followup with Dr. Morales in the outpatient setting. 6. Deep vein thrombosis (DVT) prophylaxis, on thromboembolic deterrents (TEDs) and compression.
[2018-05-14] MEDS: CARVedilol 12.5 MG TAB PO SCH (22:41)
[2018-05-15] VITALS (7 sets, daily range): BP systolic 116–150; BP diastolic 57–77
[2018-05-15 06:08] LABS: HEMATOCRIT 29.2 % (36.0-47.0); HEMOGLOBIN 9.9 g/dl (12.0-15.5); MEAN CORPUSCULAR HEMOGLOBIN 36.8 pg (27.0-33.0); MEAN CORPUSCULAR HGB CONC 33.9 g/dl (32.0-36.5); MEAN CORPUSCULAR VOLUME 108.6 fl (80.0-96.0); RED BLOOD COUNT 2.69 10^6/uL (4.00-5.40); WHITE BLOOD COUNT 4.3 10^3/uL (4.0-10.0)
[2018-05-15 06:11] LABS: PLATELET COUNT, AUTOMATED 35 10^3/uL (150-450)
[2018-05-15 06:28] LABS: BLOOD UREA NITROGEN 6 MG/DL (7-18); CALCIUM LEVEL 8.4 MG/DL (8.5-10.1); CARBON DIOXIDE LEVEL 27 MEQ/L (21-32); CHLORIDE LEVEL 104 MEQ/L (98-107); CREATININE FOR GFR 0.69 MG/DL (0.55-1.30); GLOMERULAR FILTRATION RATE > 60.0 (>58); GLUCOSE, FASTING 99 MG/DL (70-100); MAGNESIUM LEVEL 1.8 MG/DL (1.8-2.4); POTASSIUM SERUM 3.4 MEQ/L (3.5-5.1); SODIUM LEVEL 140 MEQ/L (136-145)
[2018-05-15] MEDS: SUCRALFATE 1 GM TAB PO SCH ×3 (06:55→20:59)
[2018-05-15] MEDS: SLF 3 ML SYR IV SCH ×3 (06:55→20:59)
[2018-05-15] MEDS ORDERED: ISOVUE-370 76% 125ML VIAL (Q9967 PER ML) As Ordered ONE (07:59)
--- NOTE | 2018-05-15 09:04 | REP ---
CT abdomen and pelvis with IV but without oral contrast: History: Hepatic cirrhosis. The patient has a history of autoimmune hepatitis, nonalcoholic steatohepatitis and cirrhosis. Comparison CT studies are from April 02, 2018 and October 14, 2016. CT contrast dose: 100 ml of intravenous Isovue 370. 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 The lung bases are essentially clear. There is no evidence of pleural effusion or pericardial effusion. The liver shows a mottled heterogeneous texture with geographic areas of low density consistent steatohepatitis. The liver remains enlarged. Midclavicular line vertical span for the liver is 21.8 cm. This is actually somewhat improved from the April 02, 2018 study when this measurement was 25.2 cm by my measurement. No hepatic mass lesion is seen. There is a small quantity of perihepatic and perisplenic ascites. The spleen is enlarged measuring 13.6 cm in greatest anteroposterior dimension. This is slightly improved as well. No adrenal lesion is seen. No pancreatic abnormality is observed. The kidneys enhance symmetrically and are morphologically intact. No abnormalities noted in the gallbladder. There is some minimal fluid in the pericolic gutters bilaterally and there is some streakiness in scattered areas of abdominal fat. Tiny amount of fluid is seen in the pelvic cul-de-sac. There are prominent mesenteric venous collateral channels throughout the abdomen as before consistent with portal hypertension. The portal vein enhances homogeneously. It is somewhat dilated measuring 17.6 mm in AP dimension as before. No uterine or ovarian abnormality is seen. Urinary bladder is empty but appears intact. No abdominal wall defect is seen. Small and large bowel loops are unremarkable. No significant bony abnormality. Impression: Evidence of fatty infiltration of the liver, hepatosplenomegaly, portal hypertension, minimal ascites. Portal venous collaterals throughout the abdomen. The liver and spleen are a little less swollen than they were on April 02, 2018. Electronically Signed by Robert Monsalve MD 05/15/2018 11:59 A
[2018-05-15] MEDS: MAGNESIUM OXIDE 400 MG TAB (MAG-OX) PO SCH ×2 (09:09→20:59)
[2018-05-15] MEDS: FUROSEMIDE 20 MG TAB PO SCH (09:09)
[2018-05-15] MEDS: FOLIC ACID 1 MG TAB PO SCH (09:09)
[2018-05-15] MEDS: SPIRONOLACTONE 50 MG TAB PO SCH (09:09)
[2018-05-15] MEDS: CARVedilol 12.5 MG TAB PO SCH ×2 (09:09→20:59)
[2018-05-15] MEDS: PANTOPRAZOLE 40MG TAB (PROTONIX) PO SCH ×2 (11:37→20:59)
--- NOTE | 2018-05-15 17:46 | IPNPDOC ---
Text Note Date of Service The patient was seen on 05/15/18. NOTE SUBJECTIVE: Patient is seen and examined in the room today. Patient states her nausea and vomiting are improving. No recurrence of chest discomfort. She is complaining about fatigue. Patient states her anxiety is improving. OBJECTIVE: VITAL SIGNS: Listed below. GENERAL: Anxious, alert and awake. HEENT: Normocephalic, atraumatic. Extraocular motor grossly intact. CARDIOVASCULAR: Positive S1, S2, regular rate. LUNGS: Clear to auscultation bilaterally. ABDOMEN: Soft, nontender. Bowel sounds present. EXTREMITIES: Post surgical jaime at right lower extremity. No swelling. . LABORATORY DATA: Listed below. ASSESSMENT AND PLAN: #. Thrombocytopenia. - Disseminated intravascular coagulation (DIC) panel reviewed. Patient did have recent GI bleeding. - Procalcitonin is negative. Patient had recent hepatitis E infection. Rule out possible viral causes. - CT abdomen and pelvis demonstrates hepatosplenomegaly and portal hypertension. - Continue monitoring any sign of active bleeding. Patient is currently having vaginal bleeding. She is not sure whether she is in her menstrual cycle because the history of irregular menstrual cycle . # Anemia. - Patient had upper GI bleed s/p EGD. Patient has vaginal bleeding. No recurrence of upper GI bled. - Continue monitoring HH. #. Liver cirrhosis from nonalcoholic steatohepatitis (IRIZARRY) and possible primary biliary cholangitis. - on Lasix and spironolactone. Recommend continued outpatient followup. #. Upper gastrointestinal (GI) bleeding. - Patient had an upper endoscopy by Dr. Asher on 04/15/2018. Patient was found to have eroded mucosa in the esophagus. Nausea and vomiting are improving, on Protonix and Carafate. Continue to monitor any recurrence of the symptoms. #. Upper chest discomfort. - Troponin I has been negative times three sets. CT angiogram demonstrated no pulmonary embolism (PE). No acute finding in the chest. #. Deep vein thrombosis (DVT) prophylaxis, on thromboembolic deterrents (TEDs) and compression. VS,Fishbone, I+O VS, Fishbone, I+O Laboratory Tests 05/15/18 05:29 Red Blood Count 2.69 L, Mean Corpuscular Volume 108.6 H, Mean Corpuscular Hemoglobin 36.8 H, Mean Corpuscular Hemoglobin Concent 33.9, Red Cell Distribution Width 13.2, Calcium Level 8.4 L Vital Signs Date Time Temp Pulse Resp B/P (MAP) Pulse Ox O2 Delivery O2 Flow Rate FiO2 05/15/18 16:00 98.2 89 18 140/60 (86) 97 05/13/18 06:18 Room Air I&O- Last 24 Hours up to 6 AM 05/15/18 06:00 Intake Total 1320 ml Output Total 400 ml Balance 920 ml STACIE MOSCOSO DO May 15, 2018 17:46
[2018-05-15] MEDS: THIAMINE 100 MG TAB PO SCH (18:36)
[2018-05-15] MEDS: LORazepam 2 MG/ML VIAL (J2060) IV PRN (23:50)
[2018-05-16 03:49] VITALS: BP 112/55
[2018-05-16] MEDS: SUCRALFATE 1 GM TAB PO SCH ×3 (05:48→21:56)
[2018-05-16] MEDS: SLF 3 ML SYR IV SCH ×3 (05:48→21:57)
[2018-05-16 05:51] LABS: HEMATOCRIT 27.9 % (36.0-47.0); HEMOGLOBIN 9.3 g/dl (12.0-15.5); MEAN CORPUSCULAR HEMOGLOBIN 36.6 pg (27.0-33.0); MEAN CORPUSCULAR HGB CONC 33.3 g/dl (32.0-36.5); MEAN CORPUSCULAR VOLUME 109.8 fl (80.0-96.0); RED BLOOD COUNT 2.54 10^6/uL (4.00-5.40); WHITE BLOOD COUNT 4.4 10^3/uL (4.0-10.0)
[2018-05-16 05:53] LABS: PLATELET COUNT, AUTOMATED 39 10^3/uL (150-450)
[2018-05-16 06:17] LABS: BLOOD UREA NITROGEN 5 MG/DL (7-18); CALCIUM LEVEL 7.7 MG/DL (8.5-10.1); CARBON DIOXIDE LEVEL 29 MEQ/L (21-32); CHLORIDE LEVEL 105 MEQ/L (98-107); CREATININE FOR GFR 0.63 MG/DL (0.55-1.30); FREE THYROXINE INDEX 3.8 % (1.3-4.8); GLOMERULAR FILTRATION RATE > 60.0 (>58); GLUCOSE, FASTING 93 MG/DL (70-100); MAGNESIUM LEVEL 1.7 MG/DL (1.8-2.4); POTASSIUM SERUM 3.1 MEQ/L (3.5-5.1); SODIUM LEVEL 142 MEQ/L (136-145); T UPTAKE 31 % (30-39); THYROXINE (T4) 12.2 UG/DL (4.5-12.0)
[2018-05-16] MEDS ORDERED: MAG SULF 1GM/100ML (MAG RUN) 1 GM in APPROPRIATE DILUENT 1 EA IV ONE (06:30)
[2018-05-16] MEDS ORDERED: POTASSIUM CHLORIDE 10 MEQ SR TABLET PO ONE (06:30)
[2018-05-16 08:00] VITALS: BP 99/57
[2018-05-16 09:13] LABS: INR 1.74; PROTHROMBIN TIME 20.6 SECONDS (12.1-14.4)
[2018-05-16 09:30] LABS: ALBUMIN 2.7 GM/DL (3.2-5.2); BILIRUBIN,DIRECT 2.2 MG/DL (0.0-0.2); BILIRUBIN,TOTAL 4.6 MG/DL (0.2-1.0); TOTAL PROTEIN 7.2 GM/DL (6.4-8.2)
[2018-05-16] MEDS: PANTOPRAZOLE 40MG TAB (PROTONIX) PO SCH ×2 (09:58→20:22)
[2018-05-16] MEDS: FOLIC ACID 1 MG TAB PO SCH (09:58)
[2018-05-16] MEDS: CARVedilol 12.5 MG TAB PO SCH ×2 (09:58→20:26)
[2018-05-16] MEDS: MAGNESIUM OXIDE 400 MG TAB (MAG-OX) PO SCH ×2 (09:58→20:26)
[2018-05-16] MEDS: THIAMINE 100 MG TAB PO SCH (09:59)
[2018-05-16] MEDS: FUROSEMIDE 20 MG TAB PO SCH (09:59)
[2018-05-16] MEDS: SPIRONOLACTONE 50 MG TAB PO SCH (09:59)
[2018-05-16] MEDS: LORazepam 2 MG/ML VIAL (J2060) IV PRN (10:10)
[2018-05-16 12:00] VITALS: BP 120/60
[2018-05-16 17:00] VITALS: BP 138/73
--- NOTE | 2018-05-16 18:02 | IPNPDOC ---
Text Note Date of Service The patient was seen on 05/16/18. NOTE SUBJECTIVE: Patient is seen and examined in the room today. Patient states her nausea and vomiting resolved. No recurrence of chest discomfort. Her vaginal bleeding slowed down. She feels she is having menstrual bleeding. She denies difficulty breathing. She requested oxygen because that will help with her anxiety. OBJECTIVE: VITAL SIGNS: Listed below. GENERAL: Anxious, alert and awake. HEENT: Normocephalic, atraumatic. Extraocular motor grossly intact. CARDIOVASCULAR: Positive S1, S2, regular rate. LUNGS: Clear to auscultation bilaterally. ABDOMEN: Soft, nontender. Bowel sounds present. EXTREMITIES: Post surgical jaime at right lower extremity. No swelling. . LABORATORY DATA: Listed below. ASSESSMENT AND PLAN: #. Thrombocytopenia. - Disseminated intravascular coagulation (DIC) panel reviewed. Patient did have recent GI bleeding. - Procalcitonin is negative. Patient had recent hepatitis E infection. Rule out possible viral causes. - CT abdomen and pelvis demonstrates hepatosplenomegaly and portal hypertension. - Continue monitoring any sign of active bleeding. Vaginal bleeding slowed down. Patient may be in her menstrual cycle. # Anemia. - Patient had upper GI bleed s/p EGD. Patient has vaginal bleeding possibly secondary to menstrual period. No recurrence of upper GI bled. - Continue monitoring HH. # Anxiety - Trial of Ativan. Continue to taper as tolerated. #. Liver cirrhosis from nonalcoholic steatohepatitis (IRIZARRY) and possible primary biliary cholangitis. - on Lasix and spironolactone. Recommend continued outpatient followup. # Electrolyte abnormalities - Hypokalemia and hypomagnesemia. - Supplement as needed. #. Upper gastrointestinal (GI) bleeding. - Patient had an upper endoscopy by Dr. Asher on 04/15/2018. Patient was found to have eroded mucosa in the esophagus. Nausea and vomiting resolved. On Protonix and Carafate. Continue to monitor any recurrence of the symptoms. #. Upper chest discomfort. - Troponin I has been negative times three sets. CT angiogram demonstrated no pulmonary embolism (PE). No acute finding in the chest. #. Deep vein thrombosis (DVT) prophylaxis, on thromboembolic deterrents (TEDs) and compression. VS,Fishbone, I+O VS, Fishbone, I+O Laboratory Tests 05/16/18 05:21 Red Blood Count 2.54 L, Mean Corpuscular Volume 109.8 H, Mean Corpuscular Hemoglobin 36.6 H, Mean Corpuscular Hemoglobin Concent 33.3, Red Cell Distribution Width 13.2, Calcium Level 7.7 L Vital Signs Date Time Temp Pulse Resp B/P (MAP) Pulse Ox O2 Delivery O2 Flow Rate FiO2 05/16/18 17:00 97.6 79 20 138/73 (94) 98 2.0 05/13/18 06:18 Room Air I&O- Last 24 Hours up to 6 AM 05/16/18 06:00 Intake Total 2400 ml Output Total 0 ml Balance 2400 ml STACIE MOSCOSO DO May 16, 2018 18:02
[2018-05-16] MEDS: LORazepam 0.5 MG TAB PO PRN (18:27)
[2018-05-16 20:00] VITALS: BP 125/58
[2018-05-16 23:59] VITALS: BP 123/56
[2018-05-17 00:08] LABS: PARVOVIRUS B19 QUANT PCR Negative copies/mL (Negative)
[2018-05-17] MEDS: LORazepam 0.5 MG TAB PO PRN ×3 (02:02→18:07)
[2018-05-17 05:29] VITALS: BP 138/60
[2018-05-17] MEDS: SUCRALFATE 1 GM TAB PO SCH ×3 (05:36→21:24)
[2018-05-17] MEDS: SLF 3 ML SYR IV SCH ×3 (05:42→21:24)
[2018-05-17 05:53] LABS: HEMATOCRIT 26.7 % (36.0-47.0); HEMOGLOBIN 9.1 g/dl (12.0-15.5); MEAN CORPUSCULAR HEMOGLOBIN 37.3 pg (27.0-33.0); MEAN CORPUSCULAR HGB CONC 34.1 g/dl (32.0-36.5); MEAN CORPUSCULAR VOLUME 109.4 fl (80.0-96.0); PLATELET COUNT, AUTOMATED 42 10^3/uL (150-450); RED BLOOD COUNT 2.44 10^6/uL (4.00-5.40); WHITE BLOOD COUNT 4.7 10^3/uL (4.0-10.0)
[2018-05-17 05:57] LABS: INR 1.64; PROTHROMBIN TIME 19.7 SECONDS (12.1-14.4)
[2018-05-17 06:15] LABS: ALBUMIN 2.4 GM/DL (3.2-5.2); ALT/SGPT 27 U/L (12-78); BILIRUBIN,DIRECT 1.7 MG/DL (0.0-0.2); BILIRUBIN,TOTAL 3.4 MG/DL (0.2-1.0); BLOOD UREA NITROGEN 5 MG/DL (7-18); CALCIUM LEVEL 8.1 MG/DL (8.5-10.1); CARBON DIOXIDE LEVEL 27 MEQ/L (21-32); CHLORIDE LEVEL 105 MEQ/L (98-107); CREATININE FOR GFR 0.58 MG/DL (0.55-1.30); GLOMERULAR FILTRATION RATE > 60.0 (>58); GLUCOSE, FASTING 108 MG/DL (70-100); MAGNESIUM LEVEL 1.9 MG/DL (1.8-2.4); POTASSIUM SERUM 3.3 MEQ/L (3.5-5.1); SODIUM LEVEL 140 MEQ/L (136-145); TOTAL PROTEIN 6.5 GM/DL (6.4-8.2)
[2018-05-17 08:00] VITALS: BP 114/55
[2018-05-17] MEDS: FOLIC ACID 1 MG TAB PO SCH (08:24)
[2018-05-17] MEDS: PANTOPRAZOLE 40MG TAB (PROTONIX) PO SCH ×2 (08:24→20:37)
[2018-05-17] MEDS: SPIRONOLACTONE 50 MG TAB PO SCH (08:24)
[2018-05-17] MEDS: THIAMINE 100 MG TAB PO SCH (08:24)
[2018-05-17] MEDS: FUROSEMIDE 20 MG TAB PO SCH (08:25)
[2018-05-17] MEDS: CARVedilol 12.5 MG TAB PO SCH ×2 (08:26→20:36)
[2018-05-17] MEDS: MAGNESIUM OXIDE 400 MG TAB (MAG-OX) PO SCH ×2 (08:26→20:37)
[2018-05-17] MEDS ORDERED: POTASSIUM CHLORIDE 10 MEQ SR TABLET PO ONE (10:00)
[2018-05-17 12:00] VITALS: BP 100/52
--- NOTE | 2018-05-17 17:32 | MHCRPDOC ---
[facility] Consultation Consultation DATE OF CONSULTATION: 05/17/18 CONSULTATION REQUESTED BY: Medical team REASON FOR CONSULTATION: Patient reports anxiety related to her medical illness and seeks treatment. RELEVANT HISTORY: Patient admitted due to worsening chest pain and developed hematemesis. She reports no history of panic attacks, but says that on admission had diaphoresis, "weak knees" and palpitations. After receiving fluids and endoscopy continues to have mild-moderate anxiety. Reports that her IRIZARRY presentation is similar to her mother's who also had IRIZARRY, followed by pancreatitis and last year on May 15, 2018. Says she is unsure if the anniversary makes her more anxious. She reports some depressed mood related to her condition but states she is "fine on most days of the last week", but denies PTSD symptoms, ria, hallucinations or delusions. Patient had a QTc of 509 ms, suggesting prolongation in context of CHF history. We discussed medications with less QTc prolongation for improved anxiety. Patient endorsed poor outside support for mental health and that she would appreciate talking with someone although she states she feels embarrassed. Educated on benefits of having support when dealing with a chronic illness. Patient denies SI/HI/AVH/ria. Says she feels safe to return home, but wants help with anxiety. PAST PSYCHIATRIC HISTORY: Denies PAST MEDICAL HISTORY: IRIZARRY, CHF, pre-eclampsia, HTN FAMILY HISTORY: Denies psychiatric history in family apart from PTSD in uncle ([place] ) Mother: IRIZARRY, pancreatitis, Father: HTN Siblings: Reports sister; breast/bone/brain/throat cancer, 25 years ago, brother in 1999 Children: None reported PERSONAL AND SOCIAL HISTORY: The patient was born and raised in [place]. Resides in: [place] Marital Status: Children: 3 boys, 1 boy aged 18, 2 less than 18 Employment: unemployed, reports on disability, says financially stable, ex- pays child support SUBSTANCE ABUSE HISTORY: Smokin-4 cigarettes per day, no other drugs reported ETOH: Denies Illicit Drugs: Denies LEGAL HISTORY: Not indicated MENTAL STATUS EXAMINATION: Patient is a 38-year old female, who is in no acute distress, sitting comfortably in a chair, in hospital clothing, good eye-contact, pleasant, cooperative. Speech is normal rate, rhythm, volume. Language skills are intact. Thought processes including: logical, linear. Thought content: anxiety related to health problems. Abstract reasoning, and computation: intact. Description of associations: intact. Description of abnormal or psychotic thoughts: intact. Judgment: fair Insight: fair. Orientation: x4 Recent and remote memory: intact Attention span and concentration: good Language: tanzanian. Fund of knowledge: average. Mood: anxious. Affect: mild to moderate anxiety, mild dysthymic, constricted, . DIAGNOSIS: 1. unspecified anxiety disorder 2. Unspecified depressive disorder 3.Tobacco use disorder PLAN: Suggest: 1. Patient be started on gabapentin 300 mg PO TID for anxiety, since lower risk QTc prolongation compared to other anxiety medications, may be titrated up as tolerated. 2. Suggest discussing with patient discontinuing lorazepam, due to risk for habit formation. 3. Suggest patient be started on PRN 3 mg melatonin for sleep, may titrate up to 10 mg as need. 4. Suggest social work connect patient with outside mental health resources, including therapy and also address addiction to nicotine. Has tried the patch and varenicline (reports made her agitated and have weird dreams) in the past with poor results. Time spent: 60 minutes Vital Signs Vital Signs Date Time Temp Pulse Resp B/P (MAP) Pulse Ox O2 Delivery O2 Flow Rate FiO2 05/17/18 12:00 98.0 70 17 100/52 (68) 98 05/17/18 04:00 2.0 05/13/18 06:18 Room Air Laboratory Data 24H Labs Laboratory Tests 2 05/17/18 05:34: Nucleated Red Blood Cells % (auto) 0.0, Immature Platelet Fraction 5.7, Prothrombin Time 19.7H, Prothromb Time International Ratio 1.64, Anion Gap 8, Glomerular Filtration Rate > 60.0, Calcium Level 8.1L, Magnesium Level 1.9, Aspartate Amino Transf (AST/SGOT) 124H, Alanine Aminotransferase (ALT/SGPT) 27, Alkaline Phosphatase 118H, Total Bilirubin 3.4H, Direct Bilirubin 1.7H, Total Protein 6.5, Albumin 2.4L, Albumin/Globulin Ratio 0.59L Home Medications Current Medications Current Medications Carvedilol (COReg) 18.75 mg BID PO ; Start 05/13/18 at 21:00; Stop 05/13/18 at 21:00; Status DC Carvedilol (COReg) 18.75 mg BID PO Last administered on 05/17/18 08:26; Start 05/14/18 at 09:00 Ciprofloxacin 400 mg/IV Miscellaneous Supplies 200 ml @ 200 mls/hr Q12H IV Las t administered on 05/13/18at 12:00; Start 05/13/18 at 12:00; Stop 05/13/18 at 16:13; Status DC Fentanyl Citrate (Sublimaze) 25 mcg Q5MP PRN IV MODERATE PAIN (PS 4-7); Start 05/13/18 at 16:30; Stop 05/13/18 at 17:30; Status DC Folic Acid (Folic Acid) 1 mg DAILY PO Last administered on 05/17/18 08:24; Start 05/13/18 at 09:00 Furosemide (Lasix) 20 mg DAILY PO Last administered on 05/17/18 08:25; Start 05/13/18 at 09:00 Home Med (Med Rec Complete!) ASDIRECTED XX ; Start 05/13/18 at 11:00; Stop 05/13/18 at 11:02; Status DC Lactated Ringer's 1,000 ml @ 100 mls/hr Q10H IV ; Start 05/13/18 at 16:30; Stop 05/13/18 at 17:30; Status DC Lorazepam (Ativan) 0.5 mg Q8HP PRN PO ANXIETY Last administered on 05/17/18 10:05; Start 05/16/18 at 11:30 Lorazepam (Ativan) 0.5 mg STAT STAT IV Last administered on 05/13/18 05:24; Start 05/13/18 at 05:09; Stop 05/13/18 at 05:10; Status DC Lorazepam (Ativan) 1 mg Q8HP PRN IV ANXIETY/AGITATION Last administered on 05/16/18 10:10; Start 05/13/18 at 13:45; Stop 05/16/18 at 11:31; Status DC Lorazepam (Ativan) 1 mg STAT STAT PO Last administered on 05/13/18at 08:10; Start 05/13/18 at 08:05; Stop 05/13/18 at 08:06; Status DC Magnesium Oxide (Mag-Ox) 800 mg BID PO Last administered on 05/17/18 08:26; Start 05/14/18 at 09:00 Magnesium Sulfate/ Dextrose 1 gm/IV Miscellaneous Supplies 100 ml @ 100 mls/hr Q1H IV Last administered on 05/14/18 09:59; Start 05/14/18 at 09:00; Stop 05/14/18 at 10:59; Status DC Nitroglycerin (Nitrostat (1/ 150)) 0.4 mg Q5M PRN SL CHEST PAIN Last administered on 05/14/18 03:26; Start 05/13/18 at 01:30 Ondansetron HCl (ZOFRAN INJection) 4 mg Q6HP PRN IV NAUSEA OR VOMITING Last administered on 05/13/18 19:56; Start 05/13/18 at 11:00 Ondansetron HCl (Zofran) 4 mg Q6H PRN PO NAUSEA; Start 05/13/18 at 15:30 Pantoprazole Sodium (Protonix) 40 mg BID IV Last administered on 05/14/18 22:42; Start 05/13/18 at 21:00; Stop 05/15/18 at 09:09; Status DC Pantoprazole Sodium (Protonix) 40 mg BID PO Last administered on 05/17/18 08:24; Start 05/15/18 at 09:00 Pantoprazole Sodium 40 mg/ Dextrose 50 ml @ 10 mls/hr Q5H IV Last administered on 05/13/18 10:45; Start 05/13/18 at 10:45; Stop 05/13/18 at 16:13; Status DC Sodium Chloride 1,000 ml @ 100 mls/hr Q10H IV Last administered on 05/13/18 19:57; Start 05/13/18 at 10:45; Stop 05/14/18 at 05:42; Status DC Sodium Chloride (Saline Lock Flush) 2 ml ASDIRECTED PRN IV SEE LABEL COMMENTS; Start 05/14/18 at 12:45 Sodium Chloride (Saline Lock Flush) 2 ml SLF IV Last administered on 05/17/18 05:42; Start 05/14/18 at 14:00 Spironolactone (Aldactone) 50 mg DAILY PO Last administered on 05/17/18 08:24; Start 05/13/18 at 09:00 Sucralfate (Carafate) 1 gm Q8H PO Last administered on 3/30/19at 14:03; Start 05/13/18 at 06:00 Thiamine HCl (Thiamine HCl) 100 mg DAILY PO Last administered on 05/17/18at 08:24; Start 05/15/18 at 16:45 Scheduled Carvedilol (Carvedilol) 12.5 Mg Tab, 18.75 MG PO BID, (Reported) Folic Acid (Folic Acid) 1 Mg Tab, 1 MG PO DAILY Furosemide (Furosemide) 20 Mg Tab, 20 MG PO DAILY Ranitidine HCl (Ranitidine HCl) 150 Mg Tab, 1 TAB PO BID, (Reported) Spironolactone (Aldactone) 50 Mg Tab, 50 MG PO DAILY Scheduled PRN Ondansetron HCl (Zofran) 4 Mg Tab, 4 MG PO Q6H PRN for NAUSEA Senna (Senna-Lax) 8.6 Mg Tab, 8.6 MG PO DAILY PRN for CONSTIPATION, (Reported) Allergies Coded Allergies: No Known Allergies (Verified , 05/13/18) WALTER ROCA PGY-1 May 17, 2018 16:12
--- NOTE | 2018-05-17 18:05 | IPNPDOC ---
Text Note Date of Service The patient was seen on 05/17/18. NOTE SUBJECTIVE: Patient is seen and examined in the room today. Patient states no recurrence of nausea and vomiting. No recurrence of chest discomfort. Her vaginal bleeding slows down. Patient had poor night sleep because the anxiety. OBJECTIVE: VITAL SIGNS: Listed below. GENERAL: Anxious, alert and awake. HEENT: Normocephalic, atraumatic. Extraocular motor grossly intact. CARDIOVASCULAR: Positive S1, S2, regular rate. LUNGS: Clear to auscultation bilaterally. ABDOMEN: Soft, nontender. Bowel sounds present. EXTREMITIES: Post surgical jaime at right lower extremity. No swelling. . LABORATORY DATA: Listed below. ASSESSMENT AND PLAN: #. Thrombocytopenia. - Disseminated intravascular coagulation (DIC) panel reviewed. Patient did have recent GI bleeding. - Procalcitonin is negative. Patient had recent hepatitis E infection. Rule out possible viral causes. - CT abdomen and pelvis demonstrates hepatosplenomegaly and portal hypertension. - Continue monitoring any sign of active bleeding. Vaginal bleeding slowed down. Patient may be in her menstrual cycle. # Anemia. - Patient had upper GI bleed s/p EGD. Patient has vaginal bleeding. No recurrence of upper GI bled. Vaginal bleeding slows down. - Continue monitoring HH. # Anxiety - Trial of Ativan used previously. However, Patient continues experiencing persistent anxiety. - Psychiatrist consulted. #. Liver cirrhosis from nonalcoholic steatohepatitis (IRIZARRY) and possible primary biliary cholangitis. - on Lasix and spironolactone. Recommend continued outpatient followup. # Electrolyte abnormalities - Hypokalemia and hypomagnesemia. - Supplement as needed. #. Upper gastrointestinal (GI) bleeding. - Patient had an upper endoscopy by Dr. Asher on 04/15/2018. Patient was found to have eroded mucosa in the esophagus. Nausea and vomiting are improving, on Protonix and Carafate. Continue to monitor any recurrence of the symptoms. #. Upper chest discomfort. - Troponin I has been negative times three sets. CT angiogram demonstrated no pulmonary embolism (PE). No acute finding in the chest. #. Deep vein thrombosis (DVT) prophylaxis, on thromboembolic deterrents (TEDs) and compression. VS,Fishbone, I+O VS, Fishbone, I+O Laboratory Tests 05/17/18 05:34 Red Blood Count 2.44 L, Mean Corpuscular Volume 109.4 H, Mean Corpuscular Hemoglobin 37.3 H, Mean Corpuscular Hemoglobin Concent 34.1, Red Cell Distribution Width 13.5 Vital Signs Date Time Temp Pulse Resp B/P (MAP) Pulse Ox O2 Delivery O2 Flow Rate FiO2 05/17/18 12:00 98.0 70 17 100/52 (68) 98 05/17/18 04:00 2.0 05/13/18 06:18 Room Air I&O- Last 24 Hours up to 6 AM 05/17/18 06:00 Intake Total 1080 ml Balance 1080 ml STACIE MOSCOSO DO May 17, 2018 18:05
[2018-05-17 20:00] VITALS: BP 133/56
[2018-05-17] MEDS: RAMELTEON 8 MG TAB (ROZEREM) PO SCH (20:36)
[2018-05-17] MEDS: GABAPENTIN 300 MG CAP PO SCH (20:37)
[2018-05-18 00:08] LABS: EBV VIRAL CAPSID AG IgM <36.0 U/mL (0.0-35.9)
[2018-05-18 04:00] VITALS: BP 125/58
[2018-05-18 05:41] LABS: HEMATOCRIT 28.7 % (36.0-47.0); HEMOGLOBIN 9.6 g/dl (12.0-15.5); MEAN CORPUSCULAR HEMOGLOBIN 36.9 pg (27.0-33.0); MEAN CORPUSCULAR HGB CONC 33.4 g/dl (32.0-36.5); MEAN CORPUSCULAR VOLUME 110.4 fl (80.0-96.0); WHITE BLOOD COUNT 4.7 10^3/uL (4.0-10.0)
[2018-05-18 05:42] LABS: PLATELET COUNT, AUTOMATED 44 10^3/uL (150-450)
[2018-05-18] MEDS: SUCRALFATE 1 GM TAB PO SCH ×3 (05:47→21:33)
[2018-05-18 05:51] LABS: INR 1.56; PROTHROMBIN TIME 18.9 SECONDS (12.1-14.4)
[2018-05-18] MEDS: SLF 3 ML SYR IV SCH ×3 (06:00→21:34)
[2018-05-18 06:08] LABS: ALBUMIN 2.5 GM/DL (3.2-5.2); ALT/SGPT 26 U/L (12-78); BILIRUBIN,DIRECT 1.5 MG/DL (0.0-0.2); BILIRUBIN,TOTAL 2.8 MG/DL (0.2-1.0); BLOOD UREA NITROGEN 5 MG/DL (7-18); CALCIUM LEVEL 8.2 MG/DL (8.5-10.1); CARBON DIOXIDE LEVEL 25 MEQ/L (21-32); CHLORIDE LEVEL 108 MEQ/L (98-107); CREATININE FOR GFR 0.62 MG/DL (0.55-1.30); GLOMERULAR FILTRATION RATE > 60.0 (>58); GLUCOSE, FASTING 109 MG/DL (70-100); MAGNESIUM LEVEL 1.7 MG/DL (1.8-2.4); POTASSIUM SERUM 3.6 MEQ/L (3.5-5.1); SODIUM LEVEL 141 MEQ/L (136-145); TOTAL PROTEIN 6.6 GM/DL (6.4-8.2)
[2018-05-18 08:00] VITALS: BP 118/59
[2018-05-18] MEDS: PANTOPRAZOLE 40MG TAB (PROTONIX) PO SCH ×2 (10:48→21:33)
[2018-05-18] MEDS: CARVedilol 12.5 MG TAB PO SCH ×2 (10:48→21:34)
[2018-05-18] MEDS: FOLIC ACID 1 MG TAB PO SCH (10:49)
[2018-05-18] MEDS: GABAPENTIN 300 MG CAP PO SCH ×3 (10:49→21:33)
[2018-05-18] MEDS: THIAMINE 100 MG TAB PO SCH (10:49)
[2018-05-18] MEDS: SPIRONOLACTONE 50 MG TAB PO SCH (10:49)
[2018-05-18] MEDS: MAGNESIUM OXIDE 400 MG TAB (MAG-OX) PO SCH ×2 (10:49→21:33)
[2018-05-18] MEDS: FUROSEMIDE 20 MG TAB PO SCH (10:49)
--- NOTE | 2018-05-18 17:36 | IPNPDOC ---
Text Note Date of Service The patient was seen on 05/18/18. NOTE SUBJECTIVE: Patient is seen and examined in the room today. Patient states she had good night sleep. Her anxiety is improving. Denies nausea, vomiting or active bleeding. OBJECTIVE: VITAL SIGNS: Listed below. GENERAL: Anxious, alert and awake. HEENT: Normocephalic, atraumatic. Extraocular motor grossly intact. CARDIOVASCULAR: Positive S1, S2, regular rate. LUNGS: Clear to auscultation bilaterally. ABDOMEN: Soft, nontender. Bowel sounds present. EXTREMITIES: Post surgical jaime at right lower extremity. No swelling. . LABORATORY DATA: Listed below. ASSESSMENT AND PLAN: #. Thrombocytopenia. - Disseminated intravascular coagulation (DIC) panel reviewed. Patient did have recent GI bleeding and vaginal bleeding. - Procalcitonin is negative. Patient had recent hepatitis E infection. Rule out possible viral causes. - CT abdomen and pelvis demonstrates hepatosplenomegaly and portal hypertension. - Continue monitoring any sign of active bleeding. - Continue physical therapy. # Anemia. - Patient had upper GI bleed s/p EGD. Patient has vaginal bleeding. No rec urrence of upper GI bled. Vaginal bleeding slows down. - Continue monitoring HH. # Anxiety - Trial of Ativan used previously. - Psychiatrist consulted. On trial of gabapentin due to history of prolonged QTc. - On Rozerem for insomnia. #. Liver cirrhosis from nonalcoholic steatohepatitis (IRIZARRY) and possible primary biliary cholangitis. - on Lasix and spironolactone. Recommend continued outpatient followup. # Electrolyte abnormalities - Hypokalemia and hypomagnesemia. - Supplement as needed. #. Upper gastrointestinal (GI) bleeding. - Patient had an upper endoscopy by Dr. Asher on 04/15/2018. Patient was found to have eroded mucosa in the esophagus. Nausea and vomiting are improving, on Protonix and Carafate. Continue to monitor any recurrence of the symptoms. #. Upper chest discomfort. - Troponin I has been negative times three sets. CT angiogram demonstrated no pulmonary embolism (PE). No acute finding in the chest. #. Deep vein thrombosis (DVT) prophylaxis, on thromboembolic deterrents (TEDs) and compression. VS,Fishbone, I+O VS, Fishbone, I+O Laboratory Tests 05/18/18 05:22 Red Blood Count 2.60 L, Mean Corpuscular Volume 110.4 H, Mean Corpuscular Hemoglobin 36.9 H, Mean Corpuscular Hemoglobin Concent 33.4, Red Cell Distribution Width 14.2 Vital Signs Date Time Temp Pulse Resp B/P (MAP) Pulse Ox O2 Delivery O2 Flow Rate FiO2 05/18/18 10:48 74 124/62 05/18/18 08:00 97.2 20 98 05/17/18 04:00 2.0 05/13/18 06:18 Room Air I&O- Last 24 Hours up to 6 AM 05/18/18 06:00 Intake Total 960 ml Output Total 0 ml Balance 960 ml STACIE MOSCOSO DO May 18, 2018 17:36
[2018-05-18] MEDS: RAMELTEON 8 MG TAB (ROZEREM) PO SCH (21:33)
[2018-05-18 22:00] VITALS: BP 103/52
[2018-05-18] MEDS: LORazepam 0.5 MG TAB PO PRN (23:16)
[2018-05-19] MEDS: SUCRALFATE 1 GM TAB PO SCH (05:28)
[2018-05-19] MEDS: SLF 3 ML SYR IV SCH (05:29)
[2018-05-19 06:00] VITALS: BP 102/50
[2018-05-19 07:06] LABS: HEMATOCRIT 27.4 % (36.0-47.0); HEMOGLOBIN 9.3 g/dl (12.0-15.5); MEAN CORPUSCULAR HEMOGLOBIN 37.8 pg (27.0-33.0); MEAN CORPUSCULAR HGB CONC 33.9 g/dl (32.0-36.5); MEAN CORPUSCULAR VOLUME 111.4 fl (80.0-96.0); RED BLOOD COUNT 2.46 10^6/uL (4.00-5.40)
[2018-05-19 07:10] LABS: PLATELET COUNT, AUTOMATED 50 10^3/uL (150-450)
[2018-05-19 07:15] LABS: INR 1.49; PROTHROMBIN TIME 18.3 SECONDS (12.1-14.4)
[2018-05-19 07:26] LABS: ALBUMIN 2.4 GM/DL (3.2-5.2); ALT/SGPT 24 U/L (12-78); BILIRUBIN,DIRECT 1.3 MG/DL (0.0-0.2); BILIRUBIN,TOTAL 2.4 MG/DL (0.2-1.0); BLOOD UREA NITROGEN 6 MG/DL (7-18); CALCIUM LEVEL 8.4 MG/DL (8.5-10.1); CARBON DIOXIDE LEVEL 27 MEQ/L (21-32); CHLORIDE LEVEL 107 MEQ/L (98-107); CREATININE FOR GFR 0.63 MG/DL (0.55-1.30); GLOMERULAR FILTRATION RATE > 60.0 (>58); GLUCOSE, FASTING 114 MG/DL (70-100); MAGNESIUM LEVEL 1.8 MG/DL (1.8-2.4); POTASSIUM SERUM 3.7 MEQ/L (3.5-5.1); SODIUM LEVEL 139 MEQ/L (136-145); TOTAL PROTEIN 6.4 GM/DL (6.4-8.2)
[2018-05-19 07:52] VITALS: BP 131/58
[2018-05-19] MEDS: CARVedilol 12.5 MG TAB PO SCH (07:52)
[2018-05-19] MEDS: PANTOPRAZOLE 40MG TAB (PROTONIX) PO SCH (07:53)
[2018-05-19] MEDS: FUROSEMIDE 20 MG TAB PO SCH (07:53)
[2018-05-19] MEDS: MAGNESIUM OXIDE 400 MG TAB (MAG-OX) PO SCH (07:53)
[2018-05-19] MEDS: SPIRONOLACTONE 50 MG TAB PO SCH (07:53)
[2018-05-19] MEDS: FOLIC ACID 1 MG TAB PO SCH (07:53)
[2018-05-19] MEDS: THIAMINE 100 MG TAB PO SCH (07:53)
[2018-05-19] MEDS: LORazepam 0.5 MG TAB PO PRN (07:53)
[2018-05-19] MEDS: GABAPENTIN 300 MG CAP PO SCH (07:53)
[2018-05-19] MEDS ORDERED: GABA-843 PO (07:56)
[2018-05-19] MEDS ORDERED: ROZE8TAB16 PO (07:56)
[2018-05-19] MEDS ORDERED: ATIV1TAB10 PO (07:56)
[2018-05-19] MEDS ORDERED: PANT40TA3 PO (07:56)
[2018-05-19] MEDS ORDERED: MAG400TA PO (07:56)
[2018-05-19] MEDS ORDERED: SUCR1TA PO (07:56)
[2018-05-19] MEDS ORDERED: THIA100TA PO (07:56)
[2018-05-19 08:00] VITALS: BP 131/58
--- NOTE | 2018-05-19 19:58 | DSES ---
DATE OF ADMISSION: 05/13/2018 DATE OF DISCHARGE: 05/19/2018 PRIMARY CARE PROVIDER: Dr. Nic Perez CONSULTANTS: General surgery. PROCEDURES: Upper endoscopy. DISCHARGE DIAGNOSES: 1. Thrombocytopenia. 2. Anemia. 3. Upper gastrointestinal (GI) bleed. 4. Vaginal bleeding. 5. Anxiety. 6. 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 7. Hypokalemia. 8. Hypomagnesemia. 9. Upper chest discomfort. 10. Severe anxiety. 11. Insomnia. HOSPITALIZATION COURSE: Patient is a 38-year-old female who presented to [facility] on 05/13/2018 with complaint of upper chest pain with increased palpitations and anxiety. In the emergency room, patient was found to have acute onset of hemoptysis. Hospitalist team is called for admission. Patient is admitted on the telemetry floor and patient is placed on nothing by mouth and started on IV support and general surgery is called for the upper GI bleed. Patient had an upper endoscopy, results were reviewed. Patient's hemoglobin and hematocrit were monitored closely. Later, patient started to demonstrate gradual and noticeable thrombocytopenia. Workup is performed and due to history of hepatitis E and history of liver cirrhosis and probable primary biliary cirrhosis, patient's case was discussed with infectious disease and patient's GI specialist, Dr. Morales. Further workup was started per recommendations. With conservative medical management patient's thrombocytopenia started to improve. Due to persistent significant anxiety, psychiatry is consulted. Patient's medication was adjusted. During this hospitalization, orthopaedic team was consulted with regard to patient's right ankle cast. Patient has a history of right ankle fracture. Patient had a cast placed since January, however due to missing outpatient appointment patient was not able to get the cast removed on time. On 05/19/2018, patient is determined to be stable for discharge with recommendation to followup with primary care provider in 1-2 weeks. Patient should follow with GI specialist to pursue her liver cirrhosis workup. Patient should also establish with a psychiatrist in the outpatient setting. VITAL SIGNS: On the date of discharge: Temperature 96, pulse 64, respiratory rate 20, blood pressure 102/50, pulse oximetry 96% in room air. LABORATORY DATA: On the date of discharge: WBC 4, hemoglobin 9.3, hematocrit 27.4, platelet count 50, sodium 139, potassium 3.7, chloride 107, carbon dioxide 27, BUN 6, creatinine 0.63, GFR greater than 60, fasting glucose 114, calcium 8.4, magnesium 1.8, total bilirubin 2.4, direct bilirubin 1.3, AST 111, ALT 24, alkaline phosphatase 121,total protein 6.4, albumin 2.4. Parvovirus DNA negative. CMV result pending. EBV IgG is positive, IgM negative. IMAGING STUDIES: CT angiogram of the chest demonstrates no acute finding in the chest. No pulmonary embolism. CT abdomen with IV contrast demonstrates evidence of fatty infiltrate of the liver, hepatosplenomegaly, portal hypertension, minimal ascites. Portal venous collaterals throughout the abdomen. DISCHARGE MEDICATIONS: - gabapentin 300 mg by mouth three times a day for 7 days with three refills - Ativan 0.5 mg by mouth daily as needed, dispense three pills - magnesium oxide 800 mg by mouth two times a day - pantoprazole 40 mg by mouth twice a day - 80 mg by mouth nightly - sucralfate 1 gram by mouth every 8 hours - thiamine 100 mg by mouth daily - carvedilol 18.75 mg by mouth twice a day - folic acid 1 mg by mouth daily - Lasix 20 mg by mouth daily - Zofran 4 mg by mouth every 6 hours as needed - ranitidine 150 mg one tablet by mouth twice a day - Senna 8.6 mg by mouth daily as needed for constipation - spironolactone 50 mg by mouth daily DISCHARGE CONDITION: Fair. DISCHARGE TIME: Greater than 30 minutes.
[2018-05-21 08:06] LABS: CMV QUANT DNA PCR (PLASMA) Negative (Negative)
[2018-05-22 00:07] LABS: CYTOMEGALOVIRUS IgG ANTIBODY <0.60 U/mL (0.00-0.59); CYTOMEGALOVIRUS IgM ANTIBODY <30.0 AU/mL (0.0-29.9); EBV PCR QUAL WHOLE BLD Positive (Negative); HEPATITIS A IgG TOTAL Positive (Negative)
== END 2018-05-19 10:35 | disposition home or self-care (01) | DRG 253 ==
LOC: M ED 00:51 → M ED INP 10:50 → M PCU 16:29 → M MS5PR 05-18 15:03
PROVIDERS: ADMIT Internal Medicine; ATTEND Internal Medicine
PROC: 0DJ08ZZ Inspection of Upper Intestinal Tract, Via Natural or Artificial Opening Endoscopic (ICD-10-PCS; principal; 2018-05-13 15:00)
DX: K92.0 Hematemesis (principal); K83.09 Other cholangitis; K76.6 Portal hypertension; D69.6 Thrombocytopenia, unspecified; E83.42 Hypomagnesemia; R04.2 Hemoptysis; K75.81 Nonalcoholic steatohepatitis (NASH); K74.60 Unspecified cirrhosis of liver; K75.4 Autoimmune hepatitis; D64.9 Anemia, unspecified; G47.00 Insomnia, unspecified; F41.9 Anxiety disorder, unspecified; E87.6 Hypokalemia; Z79.899 Other long term (current) drug therapy; I10 Essential (primary) hypertension; R10.9 Unspecified abdominal pain; F17.200 Nicotine dependence, unspecified, uncomplicated; F32.9 Major depressive disorder, single episode, unspecified

== ENCOUNTER → 2018-05-28 | Outpatient (REF) | payer OTHER ==
[~2018-05-28] MED LIST changes: +ASPI-1 PO; -ASPI325T PO; +ATIV1TAB10 PO; +GABA-843 PO; +MAG400TA PO; +PANT40TA3 PO; +RANI150T PO; +ROZE8TAB16 PO; +SUCR1TA PO; +THIA100TA PO
[2018-05-28 17:29] LABS: BASO # 0.1 10^3/uL (0.0-0.2); BASO % 1.3 % (0.0-1.0); EOS # 0.1 10^3/uL (0.0-0.50); EOS % 0.9 % (0.0-3.0); HEMATOCRIT 33.1 % (36.0-47.0); LYMPH # 2.1 10^3/uL (1.5-4.5); MEAN CORPUSCULAR HEMOGLOBIN 37.4 pg (27.0-33.0); MEAN CORPUSCULAR HGB CONC 33.2 g/dl (32.0-36.5); MEAN CORPUSCULAR VOLUME 112.6 fl (80.0-96.0); MONO # 0.4 10^3/uL (0.0-0.8); NEUTROPHILS # 2.8 10^3/uL (1.8-7.7); NEUTROPHILS % 51.4 % (36.0-66.0); RED BLOOD COUNT 2.94 10^6/uL (4.00-5.40); WHITE BLOOD COUNT 5.5 10^3/uL (4.0-10.0)
[2018-05-28 17:31] LABS: ALBUMIN 2.7 GM/DL (3.2-5.2); ALT/SGPT 26 U/L (12-78); BLOOD UREA NITROGEN 4 MG/DL (7-18); CALCIUM LEVEL 8.4 MG/DL (8.5-10.1); CARBON DIOXIDE LEVEL 25 MEQ/L (21-32); CHLORIDE LEVEL 108 MEQ/L (98-107); CREATININE FOR GFR 0.56 MG/DL (0.55-1.30); GLOMERULAR FILTRATION RATE > 60.0 (>58); GLUCOSE, FASTING 108 MG/DL (70-100); POTASSIUM SERUM 3.8 MEQ/L (3.5-5.1); SODIUM LEVEL 140 MEQ/L (136-145); TOTAL PROTEIN 6.9 GM/DL (6.4-8.2)
[2018-05-28 17:52] LABS: INR 1.41; PROTHROMBIN TIME 17.5 SECONDS (12.1-14.4)
[2018-05-28 17:53] LABS: PARTIAL THROMBOPLASTIN TIME 41.9 SECONDS (25.4-37.6)
[2018-05-28 19:14] LABS: PLATELET COUNT, AUTOMATED 89 10^3/uL (150-450)
== END ==
LOC: M SFHCLERA 14:06
PROVIDERS: ATTEND Family Medicine
DX: K74.60 Unspecified cirrhosis of liver (principal); D69.6 Thrombocytopenia, unspecified

== ENCOUNTER 2018-07-09 18:38 | Emergency (ER) | payer OTHER ==
[~2018-07-09] VITALS: Ht 182.9 cm; Wt 124.1 kg
[2018-07-09] MEDS ORDERED: HYDR-3363 PO (18:45)
[2018-07-09] MEDS ORDERED: URSO300C3 PO (18:46)
[2018-07-09 20:28] LABS: BASO # 0.1 10^3/uL (0.0-0.2); BASO % 0.8 % (0.0-1.0); EOS % 0.5 % (0.0-3.0); HEMOGLOBIN 11.6 g/dl (12.0-15.5); LYMPH # 1.6 10^3/uL (1.5-4.5); LYMPH % 25.3 % (24.0-44.0); MEAN CORPUSCULAR HEMOGLOBIN 36.3 pg (27.0-33.0); MEAN CORPUSCULAR HGB CONC 34.1 g/dl (32.0-36.5); MEAN CORPUSCULAR VOLUME 106.3 fl (80.0-96.0); MONO # 0.4 10^3/uL (0.0-0.8); MONO % 5.9 % (0.0-5.0); NEUTROPHILS # 4.4 10^3/uL (1.8-7.7); NEUTROPHILS % 67.2 % (36.0-66.0); WHITE BLOOD COUNT 6.5 10^3/uL (4.0-10.0)
[2018-07-09 20:31] LABS: PLATELET COUNT, AUTOMATED 74 10^3/uL (150-450)
[2018-07-09 20:51] LABS: ALBUMIN 2.8 GM/DL (3.2-5.2); ALT/SGPT 17 U/L (12-78); BLOOD UREA NITROGEN 5 MG/DL (7-18); CALCIUM LEVEL 8.1 MG/DL (8.5-10.1); CARBON DIOXIDE LEVEL 28 MEQ/L (21-32); CHLORIDE LEVEL 108 MEQ/L (98-107); CREATININE FOR GFR 0.61 MG/DL (0.55-1.30); GLOMERULAR FILTRATION RATE > 60.0 (>58); GLUCOSE, FASTING 89 MG/DL (70-100); POTASSIUM SERUM 3.7 MEQ/L (3.5-5.1); SODIUM LEVEL 142 MEQ/L (136-145); TOTAL PROTEIN 8.2 GM/DL (6.4-8.2)
[2018-07-09] MEDS ORDERED: ONDANSETRON 4MG/2ML VIAL (J2405) IV ONE (21:30)
[2018-07-09] MEDS ORDERED: MORPHINE 4 MG/ML 1ML VIAL/SYRINGE (J2270) IV ONE (21:30)
[2018-07-09] MEDS ORDERED: ISOVUE-370 76% 100ML VIAL (Q9967) As Ordered ONE (21:35)
[2018-07-09 21:58] LABS: BILIRUBIN,DIRECT 2.2 MG/DL (0.0-0.2)
[2018-07-09 22:00] LABS: INR 1.67
--- NOTE | 2018-07-09 22:09 | REP ---
Clinical: Lower abdominal pain. History of cirrhosis. Technique: Axial contrast enhanced images from the lung bases to the pubic symphysis with coronal and sagittal re-formations. Comparison: 04/02/2018, 05/15/2018. Findings: Cirrhosis with portal venous hypertension including splenomegaly, diffuse portosystemic varicosities, and moderate ascites throughout the abdomen and pelvis appreciated. Ascites has increased since prior examination. The liver demonstrates a micronodular contour without obvious focal hepatic lesion identified. Spleen is enlarged but without focal abnormality. The pancreas, gallbladder, bilateral adrenal glands and kidneys are normal. The enteric system is without obstruction or definite acute inflammatory process. Scattered diverticula noted. Pelvis demonstrates partially collapsed normal bladder and age-appropriate uterus/adnexa. No free air. Scattered small lymph nodes suggest reactive changes related to cirrhosis and ascites. Abdominal aorta without aneurysm or dissection. Musculoskeletal structures are intact. Lung bases are clear. Impression: 1. Cirrhosis with portal venous hypertension including splenomegaly, diffuse portosystemic varicosities and moderate ascites throughout the abdomen and pelvis. 2. Scattered colonic diverticula without definite evidence for acute diverticulitis. Electronically Signed by Jon Nevarez MD 07/09/2018 10:00 P
[2018-07-09] MEDS ORDERED: FUROSEMIDE 40 MG/4 ML VIAL (J1940) IV ONE (22:45)
[2018-07-09 23:37] LABS: APPEARANCE, URINE HAZY (CLEAR); BACTERIA, URINE AUTO NEGATIVE (NEGATIVE); BILIRUBIN, URINE AUTO NEGATIVE (NEGATIVE); BLOOD, URINE BLOOD 3+ (NEGATIVE); COLOR, URINE AMBER (YELLOW); GLUCOSE, URINE (UA) AUTO NEGATIVE (NEGATIVE); KETONE, URINE AUTO NEGATIVE (NEGATIVE); LEUKOCYTE ESTERASE, URINE AUTO 1+ (NEGATIVE); MUCUS, URINE SMALL (NEGATIVE); NITRITE, URINE AUTO NEGATIVE (NEGATIVE); PROTEIN, URINE AUTO NEGATIVE (NEGATIVE); RBC, URINE AUTO 2 /HPF (0-3); SPECIFIC GRAVITY URINE AUTO 1.043 (1.002-1.035); SQUAMOUS EPITHELIAL CELL UR AU 17 /HPF (0-6); TRANSITIONAL EPITHELIAL AUTO <1 /HPF; WBC, URINE AUTO 10 /HPF (0-3)
[2018-07-09] MEDS ORDERED: LASI20TA3 PO (23:42)
[2018-07-09] MEDS ORDERED: SPIR50TA4 PO (23:42)
[2018-07-09] MEDS ORDERED: OXYC-517 PO (23:42)
[2018-07-09] MEDS ORDERED: oxyCODONE 5MG TAB PO ONE (23:45)
[2018-07-09 23:51] VITALS: BP 130/78
--- NOTE | 2018-07-10 07:28 | ECGEPIP ---
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 Order Number: [id number] Reading MD: Tank Contreras Measurements Intervals [place] Rate: 75 P: 34 NV: 139 QRS: 90 QRSD: 98 T: 54 QT: 428 QTc: 480 Interpretive Statements SINUS RHYTHM SIMILAR TO 05/13/18 Electronically Signed on 07-10-2018 7:27:57 EDT by Tank Contreras
--- NOTE | 2018-07-10 13:46 | ED PDOC ---
Post-Departure Follow-Up dr nichols faxed formal report of ct abd/p for fu Zack Melgoza MD July 10, 2018 13:46
== END 2018-07-09 23:53 | disposition home or self-care (01) ==
LOC: M ED 18:38
DX: R18.8 Other ascites (principal); K74.60 Unspecified cirrhosis of liver; Z79.899 Other long term (current) drug therapy; Z87.891 Personal history of nicotine dependence
CPT/HCPCS: 74177; 80053; 81001; 82248; 85025; 85049; 85055; 85610; 93005; 96374; 96375; 99284; J1940; J2270; J2405; Q9967

== ENCOUNTER 2018-07-11 23:40 | Observation (INO) | payer OTHER ==
[~2018-07-11] VITALS: Ht 182.9 cm; Wt 123.0 kg
[~2018-07-11 23:40] MED LIST changes: +HYDR-3363 PO; +LASI20TA3 PO; +OXYC-517 PO; +SPIR50TA4 PO; +URSO300C3 PO
[2018-07-12] MEDS ORDERED: NS 500 ML IV ONE (00:30)
[2018-07-12 00:57] LABS: BASO % 0.4 % (0.0-1.0); EOS # 0.1 10^3/uL (0.0-0.50); EOS % 1.5 % (0.0-3.0); HEMATOCRIT 29.4 % (36.0-47.0); HEMOGLOBIN 10.1 g/dl (12.0-15.5); LYMPH # 1.7 10^3/uL (1.5-4.5); MEAN CORPUSCULAR HEMOGLOBIN 37.1 pg (27.0-33.0); MEAN CORPUSCULAR HGB CONC 34.4 g/dl (32.0-36.5); MEAN CORPUSCULAR VOLUME 108.1 fl (80.0-96.0); MONO # 0.4 10^3/uL (0.0-0.8); MONO % 8.9 % (0.0-5.0); NEUTROPHILS # 2.4 10^3/uL (1.8-7.7); RED BLOOD COUNT 2.72 10^6/uL (4.00-5.40); WHITE BLOOD COUNT 4.6 10^3/uL (4.0-10.0)
[2018-07-12 01:05] LABS: INR 1.8; PROTHROMBIN TIME 21.2 SECONDS (12.1-14.4)
[2018-07-12 01:22] LABS: PLATELET COUNT, AUTOMATED 57 10^3/uL (150-450)
[2018-07-12 01:29] LABS: ALBUMIN 2.4 GM/DL (3.2-5.2); ALT/SGPT 11 U/L (12-78); BILIRUBIN,DIRECT 2.2 MG/DL (0.0-0.2); BILIRUBIN,TOTAL 3.8 MG/DL (0.2-1.0); BLOOD UREA NITROGEN 6 MG/DL (7-18); CALCIUM LEVEL 7.4 MG/DL (8.5-10.1); CARBON DIOXIDE LEVEL 30 MEQ/L (21-32); CHLORIDE LEVEL 103 MEQ/L (98-107); CK-MB VALUE MASS < 1.0 NG/ML (<3.6); CPK CREATINE PHOSPHOKINASE 34 U/L (26-192); CREATININE FOR GFR 0.71 MG/DL (0.55-1.30); GLOMERULAR FILTRATION RATE > 60.0 (>58); GLUCOSE, FASTING 92 MG/DL (70-100); LIPASE 146 U/L (73-393); MB/CK RELATIVE INDEX 2.94 (< OR =4); POTASSIUM SERUM 3.4 MEQ/L (3.5-5.1); SODIUM LEVEL 139 MEQ/L (136-145); TOTAL PROTEIN 6.8 GM/DL (6.4-8.2); TROPONIN I < 0.02 NG/ML (< 0.10)
[2018-07-12] MEDS ORDERED: hydrOXYzine 25 MG TAB PO ONE (03:30)
[2018-07-12] MEDS ORDERED: NS 1,000 ML IV SCH (04:15)
[2018-07-12] MEDS ORDERED: SPIR50TA4 PO (04:43)
[2018-07-12] MEDS ORDERED: OXYC-517 PO (04:43)
[2018-07-12] MEDS ORDERED: ONDA4TAB5 PO (04:43)
[2018-07-12] MEDS ORDERED: FURO20TA2 PO (04:43)
[2018-07-12] MEDS ORDERED: FOLI1TAB11 PO (04:43)
[2018-07-12] MEDS ORDERED: LORA0.5T11 PO (04:43)
[2018-07-12] MEDS ORDERED: MAGN400T2 PO (04:43)
[2018-07-12] MEDS ORDERED: RA M10TA PO (04:45)
[2018-07-12] MEDS ORDERED: PANT-23 PO (04:45)
[2018-07-12] MEDS ORDERED: B-1100TA2 PO (04:45)
[2018-07-12] MEDS ORDERED: GABA-843 PO ×2 (04:45→11:59)
[2018-07-12] MEDS ORDERED: LORazepam 0.5 MG TAB PO PRN (05:15)
--- NOTE | 2018-07-12 05:35 | HPEPDOC ---
[facility] Medical History & Physical Date of Admission July 12, 2018 Date of Service: July 12, 2018 Attending Physician: MELISA DE LA O MD History and Physical CHIEF COMPLAINT: Weakness, hypertension HISTORY OF PRESENT ILLNESS: Patient is a 38-year-old female with a past medical history significant for liver cirrhosis, esophageal varices, hypertension, and anxiety who reported to the emergency department after feeling weak and recording low blood pressure readings at home. She states that she was in her kitchen making brownies with her children when her legs began feeling weak and she became lightheaded and developed "tunnel vision" which she describes as the edges of her vision going black. She does not report losing consciousness or falling. Later that evening, she states she had a fever of 103 and subsequently took 2 aspirin. Due to patient's history of hypertension, she monitors her blood pressure at home and when she took it after becoming weak, she states it was 88/40 thus prompting her to come to the emergency room. In the emergency department patient was found to be orthostatic. Her CMP was significant for a potassium of 3.4, total bilirubin of 3.8, direct bilirubin of 2.2, AST of 69. Blood cultures were drawn and are pending. She received a 500mL bolus of normal saline without much improvement in her pressure. Hospitalist team was contacted for admission and further management. Of historical note, patient visited the emergency department two days ago (07/09/17) complaining of abdominal pain and nausea and was subsequently found to have a moderate amount of ascites with cirrhosis, portal hypertension, and splenomegaly. She was discharged home on Lasix 20mg PO and Spironolactone 50mg PO for diuresis of her ascitic fluid. PAST MEDICAL HISTORY: Hypertension Congestive heart failure Orthostatic hypotension Liver cirrhosis Esophageal varices, secondary to liver cirrhosis Right ankle fracture Anxiety PAST SURGICAL HISTORY: section x2 Right ankle surgery, 12/2017 Colonoscopy with polyp removal, 06/2017 SOCIAL HISTORY: Marital status: single Resides in: own home in [place] Children: four children Employment: Tobacco use: former smoker ETOH: denies alcohol abuse Illicit drug use: denies FAMILY HISTORY: Father: 75 years old, heart disease, lung cancer, CVA Mother: hypertension, heart disease, diabetes Siblings: 2 brothers and 1 sister - , cancer Children: 3 sons and 1 daughter - healthy ALLERGIES: Please see below. REVIEW OF SYSTEMS: CONSTITUTIONAL: Patient reports fever last evening of 103. Reports weight changes related to ascites treatment. Denies chills, night sweats HEENT: Patient reports vision changes related to feeling weak - "tunnel vision." Denies headache, congestion, sore throat, dysphagia CARDIOVASCULAR: Denies chest pain, pressure, palpitations, dyspnea on exertion RESPIRATORY: Denies shortness of breath, cough, sputum production, hemoptysis GASTROINTESTINAL: Patient reports abdominal pain. Denies nausea, vomiting, diarrhea, constipation, melena, hematochezia GENITOURINARY: Denies dysuria SKIN: Denies rashes, lesions, NEUROLOGICAL: Denies loss of consciousness, numbness, tingling. HOME MEDICATIONS: Please see below. PHYSICAL EXAMINATION: VITAL SIGNS: please see below GENERAL APPEARANCE: Patient was examined and interviewed in the emergency department. She is dressed in a hospital gown, lying comfortably in bed. In no acute distress. Freindly, answering questions appropriately. HEENT: Normocephalic, atraumatic. EMOI. Sclera nonicteric CARDIOVASCULAR: Regular rate and rhythm. No murmurs, rubs, or gallops. Normal S1 and S2 LUNGS: Clear to auscultation bilaterally. ABDOMEN: Obese, soft, nontender. Bowel sounds present EXTREMITIES: Surgical scars present on the medial and lateral aspects of her leg. Without lower extremity edema NEUROLOGICAL: Alert and oriented x3. No focal neurologic deficits. No confusion, aphasia, facial drooping. Cranial nerves II-XII grossly intact PSYCHIATRIC: Mood and affect appropriate LABORATORY DATA: See below. MICROBIOLOGY: Blood cultures (07/12/18): pending ASSESSMENT: Patient is a 38 year old female with a past medical history PLAN: Hypotension - Patient received a 500mL bolus in the emergency department - Further IVF will be held. 2 units of 25% albumin to be given - Blood pressure to be monitored closely - Othostatics every four hours - Home antihypertensives and diuretics held - Upon discharge, patient's diuretic doses should be adjusted to prevent recurrence of hypotension Decompensated liver cirrhosis with ascites - Secondary to autoimmune hepatitis and IRIZARRY per medical record - follows with Dr. Morales as an outpatient - History of variceal bleeding, propanolol 10 mg BID Hypertension - Currently hypotensive - Hold home antihypertensives Anxiety - Continue home Hydroxyzine, Lorazepam, and Gabapentin DVT Prophylaxis: Teds and Sequential CODE STATUS: FULL CODE Vital Signs Vital Signs Date Time Temp Pulse Resp B/P (MAP) Pulse Ox O2 Delivery O2 Flow Rate FiO2 07/12/18 04:30 71 94/40 (58) 98 07/12/18 01:30 18 Room Air 07/11/18 23:42 99.4 Laboratory Data Labs 24H Laboratory Tests 2 07/12/18 00:36: Prothrombin Time 21.2H, Prothromb Time International Ratio 1.80, Lactic Acid Level 1.7 07/12/18 00:37: Immature Granulocyte % (Auto) 0.2, White Blood Count 4.6, Red Blood Count 2.72L, Hemoglobin 10.1L, Hematocrit 29.4L, Mean Corpuscular Volume 108.1H, Mean Bhargav uscular Hemoglobin 37.1H, Mean Corpuscular Hemoglobin Concent 34.4, Red Cell Distribution Width 15.5H, Platelet Count 57L, Neutrophils (%) (Auto) 52.0, Lymphocytes (%) (Auto) 37.0, Monocytes (%) (Auto) 8.9H, Eosinophils (%) (Auto) 1.5, Basophils (%) (Auto) 0.4, Neutrophils # (Auto) 2.4, Lymphocytes # (Auto) 1.7, Monocytes # (Auto) 0.4, Eosinophils # (Auto) 0.1, Basophils # (Auto) 0.0, Nucleated Red Blood Cells % (auto) 0.0, Immature Platelet Fraction 3.4, Anion Gap 6L, Glomerular Filtration Rate > 60.0, Calcium Level 7.4L, Aspartate Amino Transf (AST/SGOT) 69H, Alanine Aminotransferase (ALT/SGPT) 11L, Alkaline Phosphatase 110, Total Bilirubin 3.8H, Direct Bilirubin 2.2H, Total Creatine Kinase 34, Creatine Kinase MB < 1.0, Creatine Kinase MB Relative Index 2.94, Troponin I < 0.02, Total Protein 6.8, Albumin 2.4L, Albumin/Globulin Ratio 0.55L, Lipase 146 CBC/BMP Laboratory Tests 07/12/18 00:37 Red Blood Count 2.72 L, Mean Corpuscular Volume 108.1 H, Mean Corpuscular Hemoglobin 37.1 H, Mean Corpuscular Hemoglobin Concent 34.4, Red Cell Distribution Width 15.5 H, Neutrophils (%) (Auto) 52.0, Lymphocytes (%) (Auto) 37.0, Monocytes (%) (Auto) 8.9 H, Eosinophils (%) (Auto) 1.5, Basophils (%) (Auto) 0.4, Neutrophils # (Auto) 2.4, Lymphocytes # (Auto) 1.7, Monocytes # (Auto) 0.4, Eosinophils # (Auto) 0.1, Basophils # (Auto) 0.0 Microbiology Microbiology 07/12/18 Blood Culture, Received Pending 07/12/18 Blood Culture, Received Pending Home Medications Scheduled Carvedilol (Carvedilol) 12.5 Mg Tab, 18.75 MG PO BID Folic Acid (Folic Acid) 1 Mg Tablet, 1 MG PO DAILY Furosemide (Furosemide) 20 Mg Tablet, 20 MG PO DAILY Gabapentin (Gabapentin) 300 Mg Capsule, 300 MG PO TID Hydroxyzine HCl (Hydroxyzine HCl) 25 Mg Tablet, 50 MG PO QID Magnesium Oxide (Magnesium Oxide) 400 Mg Tablet, 800 MG PO DAILY Pantoprazole Sodium (Pantoprazole Sodium) 40 Mg Tablet.dr, 40 MG PO DAILY Spironolactone (Spironolactone) 50 Mg Tablet, 50 MG PO DAILY Thiamine HCl (Vitamin B-1) 100 Mg Tablet, 100 MG PO DAILY Ursodiol (Ursodiol) 300 Mg Capsule, 300 MG PO BID PT TAKING BID FOR 1 WEEK, THEN INSTRUCTED TO INCREASE TO TID. STARTED 07/07/18 Scheduled PRN Lorazepam (Lorazepam) 0.5 Mg Tablet, 0.5 MG PO DAILY PRN for ANXIETY Melatonin (Melatonin) 10 Mg Tablet, 5 MG PO QHS PRN for SLEEP Ondansetron HCl (Ondansetron HCl) 4 Mg Tablet, 4 MG PO Q6H PRN for NAUSEA OR VOMITING Oxycodone HCl (Oxycodone HCl) 5 Mg Tablet, 5 MG PO DAILY PRN for PAIN Senna (Senna Lax) 8.6 Mg Tab, 8.6 MG PO DAILY PRN for CONSTIPATION Allergies Coded Allergies: No Known Allergies (Verified , 05/13/18) A-FIB/CHADSVASC A-FIB History Current/History of A-Fib/PAF?: No GME ATTESTATION GME ATTESTATION My faculty preceptor for this patient encounter was physically present during the encounter and was fully available. All aspects of the patient interview, examination, medical decision making process, and medical care plan development were reviewed and approved by the faculty preceptor. The faculty preceptor is aware and concurs with the plan as stated in the body of this note and will attest to such by his/her cosignature. FABIO BOO DO July 12, 2018 05:35
[2018-07-12 07:40] LABS: MAGNESIUM LEVEL 1.2 MG/DL (1.8-2.4)
[2018-07-12] MEDS ORDERED: POTASSIUM CHLORIDE 10 MEQ SR TABLET PO ONE ×2 (09:00→15:00)
[2018-07-12] MEDS ORDERED: PROPRANOLOL 10 MG TAB PO SCH (09:00)
[2018-07-12] MEDS ORDERED: MAGNESIUM OXIDE 400 MG TAB (MAG-OX) PO SCH (09:00)
[2018-07-12] MEDS ORDERED: FOLIC ACID 1 MG TAB PO SCH (09:00)
[2018-07-12] MEDS ORDERED: GABAPENTIN 300 MG CAP PO SCH (09:00)
[2018-07-12] MEDS ORDERED: THIAMINE 100 MG TAB PO SCH (09:00)
[2018-07-12] MEDS ORDERED: URSODIOL 300 MG CAP PO SCH (09:00)
[2018-07-12 09:30] VITALS: BP 136/73
[2018-07-12] MEDS: MAG SULF 1GM/100ML (MAG RUN) 1 GM in APPROPRIATE DILUENT 1 EA IV SCH ×2 (10:21→11:18)
[2018-07-12] MEDS: hydrOXYzine 25 MG TAB PO SCH ×2 (10:22→13:00)
[2018-07-12 11:41] VITALS: BP 136/63
[2018-07-12] MEDS ORDERED: HYDR-3363 PO (11:59)
[2018-07-12 12:16] LABS: HEMATOCRIT 30.8 % (36.0-47.0); HEMOGLOBIN 10.5 g/dl (12.0-15.5); MEAN CORPUSCULAR HEMOGLOBIN 36.6 pg (27.0-33.0); MEAN CORPUSCULAR HGB CONC 34.1 g/dl (32.0-36.5); MEAN CORPUSCULAR VOLUME 107.3 fl (80.0-96.0); RED BLOOD COUNT 2.87 10^6/uL (4.00-5.40); WHITE BLOOD COUNT 4.1 10^3/uL (4.0-10.0)
[2018-07-12 12:20] LABS: PLATELET COUNT, AUTOMATED 62 10^3/uL (150-450)
[2018-07-12 12:34] LABS: BLOOD UREA NITROGEN 5 MG/DL (7-18); CALCIUM LEVEL 7.7 MG/DL (8.5-10.1); CARBON DIOXIDE LEVEL 28 MEQ/L (21-32); CHLORIDE LEVEL 104 MEQ/L (98-107); CREATININE FOR GFR 0.62 MG/DL (0.55-1.30); GLOMERULAR FILTRATION RATE > 60.0 (>58); GLUCOSE, FASTING 98 MG/DL (70-100); POTASSIUM SERUM 3.4 MEQ/L (3.5-5.1); SODIUM LEVEL 138 MEQ/L (136-145)
[2018-07-12 14:00] VITALS: BP 140/70
--- NOTE | 2018-07-12 16:31 | DS.PDOC ---
Discharge Summary General Date of Admission July 11, 2018 at 23:41 Date of Discharge 07/12/18 Discharge Summary PROCEDURES PERFORMED DURING STAY: [None]. ADMITTING DIAGNOSES / DISCHARGE DIAGNOSES: 1. Hypovolemic hypotension 2. Compensated liver cirrhosis with ascites 3. Hypertension 4. Anxiety COMPLICATIONS/CHIEF COMPLAINT: Low Bp, Cirrhosis. HISTORY OF PRESENT ILLNESS: Patient is a 38 yo female with PMH of liver cirrhosis, esophageal varices, hypertension, and anxiety presented to [facility] ER feeling weak and recording BP 88/40 at home. Pt was in making brownies with her children in kitchen when her legs began feeling weak and lightheaded ; she also describes the edges of her vision going black. She denies losing consciousness or falling. Fever of 103 later and subsequently took 2 aspirin. After measuring her BP to be 88/40, pt came to the ER. Of note, on 07/09/17, pt presented to ER complaining of abdominal pain and nausea and was found to have a moderate amount of ascites with cirrhosis, portal hypertension, and splenomegaly. She was discharged home on lasix 20mg PO and spironolactone 50mg PO for diuresis of her ascitic fluid. Pt reported in addition to taking the diuretics, she was also trying to decrease her oral fluid intake at home. HOSPITAL COURSE: Pt found to be orthostatic in ER with mild hypokalemia of 3.4. She was also noted to have total bilirubin of 3.8, direct bilirubin of 2.2, AST of 69. Received a 500mL bolus of NS and had a gradual BP improvement. She denied any lightheadedness, dizziness, vertigo, or visual disturbance this morning. Patient was ultimately discharged home with spironolactone alone, and no furosemide. Patient is advised to follow-up with her primary care provider, Dr. Perez, as well as Dr. Morales within 7 days. She's been advised to remained compliant with treatment plan and medications and return to the emergency room if she experiences any problems. DISCHARGE MEDICATIONS: Please see below. ALLERGIES: Please see below. PHYSICAL EXAMINATION ON DISCHARGE: VITAL SIGNS: Please see below. GENERAL: Alert and awake, cooperative, pleasant, not in acute distress HEENT: Head normocephalic, atraumatic, conjunctiva and lids normal, mucosa moist and pink NECK: supple CARDIOVASCULAR EXAMINATION: RRR, no murmur, normal S1 and S2 RESPIRATORY EXAMINATION: CTA b/l, no rales, wheezing, or rhonchi ABDOMINAL EXAMINATION: bowel sound aus in all 4 quadrants, no obvious fluid wave noted, soft, no guarding EXTREMITIES: radial pulse equal b/l. NEUROLOGICAL EXAMINATION: memory and cognitive function grossly intact PSYCHIATRIC EXAMINATION: Appropriate to situation LABORATORY DATA: Please see below. IMAGING: None PROGNOSIS: Good ACTIVITY: [As tolerated]. DIET: As tolerated DISPOSITION: Home, Self-Care. DISCHARGE PLAN AND INSTRUCTIONS: Follow up with Dr. Perez and Dr. Morales within 7 days Remain compliant with treatment plan and medications Return to the ER if you experience any problems DISCHARGE CONDITION: [Stable]. TIME SPENT ON DISCHARGE: 35 minutes Vital Signs/I&Os Vital Signs Date Time Temp Pulse Resp B/P (MAP) Pulse Ox O2 Delivery O2 Flow Rate FiO2 07/12/18 14:00 98.4 89 18 140/70 (93) 98 07/12/18 07:44 Room Air Laboratory Data Labs 24H Laboratory Tests 2 07/12/18 00:36: Prothrombin Time 21.2H, Prothromb Time International Ratio 1.80, Lactic Acid Level 1.7 07/12/18 00:37: Immature Granulocyte % (Auto) 0.2, White Blood Count 4.6, Red Blood Count 2.72L, Hemoglobin 10.1L, Hematocrit 29.4L, Mean Corpuscular Volume 108.1H, Mean Corpuscular Hemoglobin 37.1H, Mean Corpuscular Hemoglobin Concent 34.4, Red Cell Distribution Width 15.5H, Platelet Count 57L, Neutrophils (%) (Auto) 52.0, Lymphocytes (%) (Auto) 37.0, Monocytes (%) (Auto) 8.9H, Eosinophils (%) (Auto) 1.5, Basophils (%) (Auto) 0.4, Neutrophils # (Auto) 2.4, Lymphocytes # (Auto) 1.7, Monocytes # (Auto) 0.4, Eosinophils # (Auto) 0.1, Basophils # (Auto) 0.0, Nucleated Red Blood Cells % (auto) 0.0, Immature Platelet Fraction 3.4, Anion Gap 6L, Glomerular Filtration Rate > 60.0, Calcium Level 7.4L, Magnesium Level 1.2L, Aspartate Amino Transf (AST/SGOT) 69H, Alanine Aminotransferase (ALT/SGPT) 11L, Alkaline Phosphatase 110, Total Bilirubin 3.8H, Direct Bilirubin 2.2H, Total Creatine Kinase 34, Creatine Kinase MB < 1.0, Creatine Kinase MB Relative Index 2.94, Troponin I < 0.02, Total Protein 6.8, Albumin 2.4L, Albumin/Globulin Ratio 0.55L, Lipase 146 07/12/18 11:52: Nucleated Red Blood Cells % (auto) 0.0, Anion Gap 6L, Glomerular Filtration Rate > 60.0, Calcium Level 7.7L, Blood Urea Nitrogen 5L, Creatinine 0.62, Sodium Level 138, Potassium Level 3.4L, Chloride Level 104, Carbon Dioxide Level 28 CBC/BMP Laboratory Tests 07/12/18 00:37 Red Blood Count 2.72 L, Mean Corpuscular Volume 108.1 H, Mean Corpuscular Hemoglobin 37.1 H, Mean Corpuscular Hemoglobin Concent 34.4, Red Cell Distribution Width 15.5 H, Neutrophils (%) (Auto) 52.0, Lymphocytes (%) (Auto) 37.0, Monocytes (%) (Auto) 8.9 H, Eosinophils (%) (Auto) 1.5, Basophils (%) (Auto) 0.4, Neutrophils # (Auto) 2.4, Lymphocytes # (Auto) 1.7, Monocytes # (Auto) 0.4, Eosinophils # (Auto) 0.1, Basophils # (Auto) 0.0 07/12/18 11:52 Red Blood Count 2.87 L, Mean Corpuscular Volume 107.3 H, Mean Corpuscular Hemoglobin 36.6 H, Mean Corpuscular Hemoglobin Concent 34.1, Red Cell Distribution Width 15.7 H, Calcium Level 7.7 L Microbiology Microbiology 07/12/18 Blood Culture, Received Pending 07/12/18 Blood Culture, Received Pending Discharge Medications Scheduled Carvedilol (Carvedilol) 12.5 Mg Tab, 18.75 MG PO BID, (Reported) Folic Acid (Folic Acid) 1 Mg Tablet, 1 MG PO DAILY, (Reported) Gabapentin (Gabapentin) 300 Mg Capsule, 300 MG PO TID Hydroxyzine HCl (Hydroxyzine HCl) 25 Mg Tablet, 50 MG PO QID Magnesium Oxide (Magnesium Oxide) 400 Mg Tablet, 800 MG PO DAILY, (Reported) Pantoprazole Sodium (Pantoprazole Sodium) 40 Mg Tablet.dr, 40 MG PO DAILY, (Reported) Spironolactone (Spironolactone) 50 Mg Tablet, 50 MG PO DAILY, (Reported) Thiamine HCl (Vitamin B-1) 100 Mg Tablet, 100 MG PO DAILY, (Reported) Ursodiol (Ursodiol) 300 Mg Capsule, 300 MG PO BID, (Reported) PT TAKING BID FOR 1 WEEK, THEN INSTRUCTED TO INCREASE TO TID. STARTED 07/07/18 Scheduled PRN Lorazepam (Lorazepam) 0.5 Mg Tablet, 0.5 MG PO DAILY PRN for ANXIETY, (Reported) Melatonin (Melatonin) 10 Mg Tablet, 5 MG PO QHS PRN for SLEEP, (Reported) Ondansetron HCl (Ondansetron HCl) 4 Mg Tablet, 4 MG PO Q6H PRN for NAUSEA OR VOMITING, (Reported) Oxycodone HCl (Oxycodone HCl) 5 Mg Tablet, 5 MG PO DAILY PRN for PAIN, (Reported) Senna (Senna Lax) 8.6 Mg Tab, 8.6 MG PO DAILY PRN for CONSTIPATION, (Reported) Allergies Coded Allergies: No Known Allergies (Verified , 05/13/18) GME ATTESTATION GME ATTESTATION My faculty preceptor for this patient encounter was physically present during the encounter and was fully available. All aspects of the patient interview, examination, medical decision making process, and medical care plan development were reviewed and approved by the faculty preceptor. The faculty preceptor is aware and concurs with the plan as stated in the body of this note and will a ttest to such by his/her cosignature. ATTENDING NOTE I, Glenis Gaines, have both independently examined this patient as well as reviewed the documentation. I have discussed in detail with the resident the findings and plan of treatment as documented by the resident. I agree with their findings and treatment plan. I will continue to follow the patient and offer further guidance to the patients care as necessary during this hospital stay. MYKE YORK DO July 12, 2018 16:30 GLENIS GAINES MD July 12, 2018 19:41
== END 2018-07-12 14:42 | disposition home or self-care (01) ==
LOC: M ED 23:40 → M ED INP 23:41 → M MSPAV 07-12 09:30
PROVIDERS: ADMIT Internal Medicine Nephrology; ATTEND Internal Medicine Nephrology
DX: E86.1 Hypovolemia (principal); I95.9 Hypotension, unspecified; K74.60 Unspecified cirrhosis of liver; R18.8 Other ascites; K75.4 Autoimmune hepatitis; K75.81 Nonalcoholic steatohepatitis (NASH); I11.0 Hypertensive heart disease with heart failure; I50.9 Heart failure, unspecified; F41.9 Anxiety disorder, unspecified; I85.10 Secondary esophageal varices without bleeding; R16.1 Splenomegaly, not elsewhere classified; R50.9 Fever, unspecified; Z79.899 Other long term (current) drug therapy; Z87.891 Personal history of nicotine dependence
CPT/HCPCS: 36415; 80048; 80076; 82550; 82553; 83605; 83690; 83735; 85025; 85027; 85049; 85055; 85610; 87040; 93041; 96361; 96365; 99285; J3475

== ENCOUNTER 2018-07-30 15:17 | Emergency (ER) | payer OTHER ==
[~2018-07-30] VITALS: Ht 182.9 cm; Wt 117.3 kg
[~2018-07-30 15:17] MED LIST changes: +B-1100TA2 PO; +LORA0.5T11 PO; +MAGN400T2 PO; +ONDA4TAB5 PO; +PANT-23 PO; +RA M10TA PO
[2018-07-30 15:18] VITALS: BP 132/69
[2018-07-30] MEDS ORDERED: GABA600T4 PO (15:24)
[2018-07-30] MEDS ORDERED: RANI1TAB38 PO (15:24)
[2018-07-30] MEDS ORDERED: RANI15TA PO (16:15)
[2018-07-30] MEDS ORDERED: GABA-843 PO (16:15)
== END 2018-07-30 16:21 | disposition home or self-care (01) ==
LOC: M ED 15:17
DX: Z76.0 Encounter for issue of repeat prescription (principal); F41.9 Anxiety disorder, unspecified; F32.9 Major depressive disorder, single episode, unspecified; D68.9 Coagulation defect, unspecified; K75.9 Inflammatory liver disease, unspecified; K74.60 Unspecified cirrhosis of liver; I50.9 Heart failure, unspecified; E66.9 Obesity, unspecified; Z79.899 Other long term (current) drug therapy

== ENCOUNTER 2018-12-26 07:27 | Emergency (ER) | payer OTHER ==
[~2018-12-26 07:27] MED LIST changes: +GABA600T4 PO; +RANI1TAB38 PO
== END 2018-12-26 10:19 | disposition expired ==
LOC: M ED 07:27
DX: I46.9 Cardiac arrest, cause unspecified (principal); I50.9 Heart failure, unspecified; I10 Essential (primary) hypertension; E66.9 Obesity, unspecified; Z82.49 Family history of ischemic heart disease and other diseases of the circulatory system; Z79.899 Other long term (current) drug therapy